=== PATIENT | female | born 1960 | race African-American/Black ===

== ENCOUNTER 2020-11-03 13:55 | Inpatient (IN) ==
--- NOTE | 2020-11-03 14:34 | DR.GENAD ---
HPI Time Seen Time Seen by Provider: 11/03/20 14:18 PCP Primary Care Physician: SHERRI HPI Comment HPI Comment: A 60 y/o presenting with c/o fatigue, dyspnea that worsens with exertion. She denies chest pain. She relates hx. of a.fib, CHF and COPD. She was hospitalized and intubated in April 2020 with pneumonia amd was tested for COVID-19. Her symptoms started about 2 days ago. Here, she was noted with low O2 sats. Complaint/Symptoms Chief Complaint:: PT. C/O FEELING REALLY TIRED, SHORTNESS OF BREATH UPON EXERTION. FAMILY MEMBER CHECKED PT'S HEART RATE @ HOME WAS IN THE 50'S AND O2 SAT WAS 88-92%. COVID-19 Coronavirus risk:travel/contact w/high risk person: No Has patient experienced Coronavirus symptoms: Yes Coronavirus symptoms experienced: Shortness of Breath Nurses notes reviewed Nurses Notes Review: Yes Source History Provided: Patient Mode of Arrival Mode of Arrival: Wheelchair Timing Onset of Chief Complaint: 10/31/20 PMH PMH Past Medical History: Yes Past Medical History: CHF, COPD and Hypertension Past Medical History Comment: A-FIB Past Surgical History: Yes Surgical History: Family History History of Family Medical Conditions: Yes Family Medical History: Hypertension Social History Does patient currently use any type of tobacco product: No Have you used tobacco products in the last 12 months: No Type of Tobacco Use: None Does any household member use tobacco: No Alcohol Use: Occasionally Do you use any recreational Drugs:: Yes (MARIJUANA) Lives With: Family Lives Where: Home Travel Risk Coronavirus risk:travel/contact w/high risk person: No Has patient experienced Coronavirus symptoms: Yes Coronavirus symptoms experienced: Shortness of Breath Infectious screening In the last 2 months have you had wt loss of >10#?: NO Have you had fever, night sweats or hemotysis?: No Have you traveled outside the country in the last 6 months?: No Isolation: Standard ROS Review of Systems Constitutional: Weakness and Fatigue Eyes: No Symptoms Reported ENTM: No Symptoms Reported Respiratoy: Short of Breath Cardiovascular: No Symptoms Reported Gastrointestinal/Abdominal: No Symptoms Reported Genitourinary: No Symptoms Reported Neurological: No Symptoms Reported Musculoskeletal: No Symptoms Reported Integumentary: No Symptoms Reported Hematologic/Lymphatic: No Symptoms Reported Endocrine: No Symptoms Reported Psychiatric: No Symptoms Reported PE Vital Signs Vitals: Temperature 98.8 F Pulse Rate 82 Respiratory Rate 35 Blood Pressure 141/76 O2 Sat by Pulse Oximetry 89 General Limitations: No Limitations General Appearance: Alert and In No Apparent Distress Head Head Exam: Normal Inspection, Atraumatic and Normocephalic Eyes Eye exam: Normal Appearance and EOMI ENT ENT Exam: Normal Exam, Normal Oropharynx, Normal External Ear Exam and Mucous Membranes Moist Neck Neck Exam: Normal Inspection, Full ROM and Trachea Midline Chest Chest Inspection: Normal Inspection and Symmetric Chest Wall Rise Respiratory Respiratory Exam: Normal Lung Sounds Bilat Cardiovascular Cardiovascular Exam: Regular Rate, Normal Rhythm, Normal Heart Sounds, +S1 and +S2 Abdominal Exam Abdominal Exam: Normal Inspection, Normal Bowel Sounds and Soft Extremities Extremities Exam: Normal Inspection and Full ROM Back Back Exam: Normal Inspection and Full ROM Neurologic Neurological Exam: Alert and Oriented X3 Psychiatric Psychiatric Exam: Normal Affect and Normal Mood Skin Skin Exam: Dry and Intact COURSE Reevaluation 1st: Improved Education/Counseling Education/Counseling: Patient, Family, Education and Counseling Educated On: Treatment, Diagnosis, Prognosis and Needs for Follow Up ROR Labs Reviewed Result Diagrams: 11/03/20 15:29 11/03/20 15: Laboratory: WBC 4.0 X10^3/uL (3.6-10.0) 11/03/20 15: RBC 6.57 X10^6/uL (3.5-5.4) H 11/03/20 15:29 Hgb 16.1 g/dL (12.0-16.0) H 11/03/20 15: Hct 53.7 % (36.0-47.0) H 11/03/20 15: MCV 81.8 fL (80.0-100.0) 11/03/20 15:29 MCH 24.5 pg (27.0-34.0) L 11/03/20 15: MCHC 29.9 g/dL (33.0-35.0) L 11/03/20 15: RDW 21.9 % (11.6-16.5) H 11/03/20 15:29 Plt Count 133 X10^3/uL (150.0-450.0) L 11/03/20 15: Plt Count Comment Decreased (ADEQUATE) A 11/03/20 15: MPV 8.7 fL (7.4-11.0) 11/03/20 15: Neut % (Auto) 55.3 % (42.0-75.0) 11/03/20 15:29 Lymph % (Auto) 32.3 % (21.0-51.0) 11/03/20 15:29 [place] % (Auto) 10.1 % (0.0-13.0) 11/03/20 15:29 Eos % (Auto) 1.2 % (0.9-2.9) 11/03/20 15:29 Baso % (Auto) 1.1 % (0.2-1.0) H 11/03/20 15: Neut # (Auto) 2.2 x10^3/uL (2.2-4.8) 11/03/20 15: Lymph # (Auto) 1.3 X10^3/uL (1.3-2.9) 11/03/20 15:29 [place] # (Auto) 0.4 x10^3/uL (0.3-0.8) 11/03/20 15:29 Eos # (Auto) 0.0 x10^3/uL (0.0-0.2) 11/03/20 15:29 Baso # (Auto) 0.0 X10^3/uL (0.0-0.1) 11/03/20 15:29 Absolute Nucleated RBC 1.7 /100WBC 11/03/20 15:29 Plt Morphology Comment Normal (NORMAL) 11/03/20 15:29 RBC Morphology Abnormal (NORMAL) A 11/03/20 15:29 Anisocytosis 1+ A 11/03/20 15:29 PT 13.4 SECONDS (11.8-14.3) 11/03/20 15:29 INR Target Range - 11/03/20 15: INR 1.07 (0.8-1.3) 11/03/20 15:29 APTT 25.0 SECONDS (22.9-36.5) 11/03/20 15:29 PTT Comment - 11/03/20 15:29 D-Dimer 0.38 ug/ml (0.0-0.57) 11/03/20 15:29 Sample Site [facility] 11/03/20 14:25 ABG pH 7.300 (7.35-7.45) L 11/03/20 14:25 ABG pCO2 85.0 mmHg (35.0-45.0) H* 11/03/20 14:25 ABG pO2 26.0 mmHg (80.0-100.0) L* 11/03/20 14:25 ABG HCO3 41.8 mmol/L (22-26) H* 11/03/20 14:25 ABG O2 Saturation 40.0 % (90-100) L* 11/03/20 14:25 ABG Base Excess 11.9 mmol/L (-2.0-2.0) H 11/03/20 14:25 Hamlet Test N/a 11/03/20 14:25 A-a Gradient 17.0 mmHg 11/03/20 14:25 FiO2 21.0 11/03/20 14:25 Blood Gas Comments Pt jes well eb 11/03/20 14:25 Sodium 142 mmol/L (136-145) 11/03/20 15:29 Corrected Sodium TNP 11/03/20 15:29 Potassium 5.6 mmol/L (3.5-5.1) H 11/03/20 15:29 Chloride 105 mmol/L (98-107) 11/03/20 15:29 Carbon Dioxide 38.5 mmol/L (21-32) H 11/03/20 15:29 BUN 8 mg/dL (7-18) 11/03/20 15:29 Creatinine 0.57 mg/dL (0.55-1.02) 11/03/20 15:29 Est GFR (MDRD) Af Amer > 60 (>60) 11/03/20 15:29 Est GFR (MDRD) Non-Af > 60 (>60) 11/03/20 15:29 Glucose 105 mg/dL (65-99) H 11/03/20 15:29 Calcium 8.5 mg/dL (8.5-10.1) 11/03/20 15:29 Corrected Calcium 9.2 mg/dL (8.5-10.1) 11/03/20 15:29 Total Bilirubin 0.40 mg/dL (0.2-1.0) 11/03/20 15:29 AST 38 Units/L (15-37) H 11/03/20 15:29 ALT 33 Units/L (12-78) 11/03/20 15:29 Alkaline Phosphatase 75 Units/L (46-116) 11/03/20 15:29 Creatine Kinase 79 Units/L (26-192) 11/03/20 15:29 CK-MB (CK-2) 1.0 ng/mL (0-4.0) 11/03/20 15:29 CK/CKMB % Calc 1.3 % (<4) 11/03/20 15:29 Troponin I < 0.02 ng/mL (0-1.5) 11/03/20 15:29 Total Protein 7.3 g/dL (6.4-8.2) 11/03/20 15:29 Albumin 3.1 g/dL (3.4-5.0) L 11/03/20 15:29 Globulin 4.2 g/dL (2.5-4.5) 11/03/20 15:29 Albumin/Globulin Ratio 0.7 Ratio (1.1-2.1) L 11/03/20 15:29 TSH 3rd Generation 2.723 uIU/mL (0.358-3.74) 11/03/20 15:29 Specimen Type Catherized urine 11/03/20 15:08 Urine Color Yellow (YELLOW) 11/03/20 15:08 Urine Appearance Clear (CLEAR) 11/03/20 15:08 Urine pH 6.0 (5.0 - 8.0) 11/03/20 15:08 Ur Specific [place] 1.015 (1.000-1.030) 11/03/20 15:08 Urine Protein 2+ (NEGATIVE) 11/03/20 15:08 Urine Glucose (UA) Negative (NEGATIVE) 11/03/20 15:08 Urine Ketones Negative (NEGATIVE) 11/03/20 15:08 Urine Occult Blood Negative (NEGATIVE) 11/03/20 15:08 Urine Nitrite Negative (NEGATIVE) 11/03/20 15:08 Urine Bilirubin Negative (NEGATIVE) 11/03/20 15:08 Urine Urobilinogen Normal (NORMAL) 11/03/20 15:08 Ur Leukocyte Esterase Negative (NEGATIVE) 11/03/20 15:08 Urine RBC 0-2 /HPF (0-3) 11/03/20 15:08 Urine WBC 0-2 /HPF (0-5) 11/03/20 15:08 Ur Squamous Epith Cells Few /HPF (NEGATIVE) 11/03/20 15:08 Ur Transition Epith Cell Rare /HPF (NEGATIVE) 11/03/20 15:08 Amorphous Sediment Trace /HPF (NEGATIVE) 11/03/20 15:08 Urine Bacteria Trace /HPF (NEGATIVE) 11/03/20 15:08 Urine Mucus Few /HPF (NEGATIVE) 11/03/20 15:08 Ur Culture Indicated? No/not indicated 11/03/20 15:08 SARS CoV-2 RNA Rapid FINESSE Negative (NEGATIVE) 11/03/20 14:39 XRAY XRAY Interpreted by: Self X-ray Results: CXR: borderline cardiomegaly, pulmonary infiltrates. Radiologist report is pending. EKG Rate: 94 [place]: Normal Rhythm: NSR Block: None Hypertrophy: LVH ST: Old and Infarct Opioid Opioid Risk Tool Age (Dario box if 16-45): No History of Preadolescent Sexual Abuse: No Total: 0 Total Score Risk Category: Low Risk Copyright: Ramos LR predicting aberrant behaviors Diagnosis Discharge Problem: COPD exacerbation Respiratory failure Qualifiers: Chronicity: acute on chronic Respiratory failure complication: hypoxia and hypercapnia Qualified Code(s): J96.21 - Acute and chronic respiratory failure with hypoxia Pneumonia Qualifiers: Pneumonia type: due to unspecified organism Laterality: bilateral Lung location: unspecified part of lung Qualified Code(s): J18.9 - Pneumonia, unspecified organism CHF (congestive heart failure), NYHA class III Qualifiers: Congestive heart failure type: unspecified Qualified Code(s): I50.9 - Heart failure, unspecified A-fib Qualifiers: Atrial fibrillation type: paroxysmal Qualified Code(s): I48.0 - Paroxysmal a trial fibrillation HTN (hypertension) Qualifiers: Hypertension type: primary hypertension Qualified Code(s): I10 - Essential (primary) hypertension ADDITIONAL NOTES Additional Notes Additional Notes: HISTORY PT. C/O FEELING REALLY TIRED, SHORTNESS OF BREATH UPON EXERTION. FAMILY MEMBER CHECKED PT'S HEART RATE @ HOME WAS IN THE 50'S AND O2 SAT WAS 88-9 STUDY CHEST, 1 VIEW COMPARISON None TECHNIQUE AP view of the chest FINDINGS Cardiac silhouette is enlarged. There is prominence of the pulmonary arteries. Patient is rotated. Diffuse airspace disease worse on the left. Blunted left costophrenic sulcus. No discernible pneumothorax. Soft tissue attenuation limits evaluation. IMPRESSION Cardiomegaly with airspace disease likely pulmonary edema. Pneumonia is not excluded. Suspect a small left pleural effusion. Prominent pulmonary arteries can be seen with pulmonary artery hypertension. Electronically signed by: Farhan Nunez (Nov 03, 2020 14:56:37)
[2020-11-03 14:54] LABS: ABG BASE EXCESS 11.9 mmol/L (-2.0-2.0)
[2020-11-03 14:56] LABS: ABG HCO3 41.8 mmol/L (22-26)
--- NOTE | 2020-11-03 14:58 | RAD ---
HISTORYPT. C/O FEELING REALLY TIRED, SHORTNESS OF BREATH UPON EXERTION. FAMILY MEMBER CHECKED PT'S HEART RATE @ HOME WAS IN THE 50'S AND O2 SAT WAS 88-9STUDYCHEST, 1 VIEWCOMPARISONNoneTECHNIQUEAP view of the chestFINDINGSCardiac silhouette is enlarged. There is prominence of the pulmonary arteries. Patient is rotated. Diffuse airspace disease worse on the left. Blunted left costophrenic sulcus. No discernible pneumothorax. Soft tissue attenuation limits evaluation.IMPRESSIONCardiomegaly with airspace disease likely pulmonary edema. Pneumonia is not excluded. Suspect a small left pleural effusion. Prominent pulmonary arteries can be seen with pulmonary artery hypertension.Electronically signed by: Farhan Nunez (Nov 03, 2020 14:56:37)
[2020-11-03 15:36] LABS: BILIRUBIN,URINE NEGATIVE (NEGATIVE); BLOOD/HEMOGLOBIN,URINE NEGATIVE (NEGATIVE); GLUCOSE, URINE NEGATIVE (NEGATIVE); KETONES,URINE NEGATIVE (NEGATIVE); LEUKOCYTE ESTERASE ,URINE NEGATIVE (NEGATIVE); NITRITES,URINE NEGATIVE (NEGATIVE); PROTEIN,URINE 2+ (NEGATIVE); UROBILINOGEN,URINE NORMAL (NORMAL)
[2020-11-03 15:38] LABS: APPEARANCE,URINE CLEAR (CLEAR); COLOR,URINE YELLOW (YELLOW)
[2020-11-03 15:46] LABS: AMORPHOUS SEDIMENT,UR TRACE /HPF (NEGATIVE); BACTERIA,URINE TRACE /HPF (NEGATIVE); MUCUS,URINE FEW /HPF (NEGATIVE); RBC,URINE 0-2 /HPF (0-3); SQUAMOUS EPITHELIAL CELL,UR FEW /HPF (NEGATIVE); TRANSITIONAL EPI CELLS,URINE RARE /HPF (NEGATIVE)
[2020-11-03 16:12] LABS: BASOPHILS % (AUTO) 1.1 % (0.2-1.0); EOSINOPHILS % (AUTO) 1.2 % (0.9-2.9); HEMATOCRIT 53.7 % (36.0-47.0); HEMOGLOBIN 16.1 g/dL (12.0-16.0); LYMPHOCYTES # (AUTO) 1.3 X10^3/uL (1.3-2.9); LYMPHOCYTES % (AUTO) 32.3 % (21.0-51.0); MEAN CORPUSCULAR HEMOGLOBIN 24.5 pg (27.0-34.0); MEAN CORPUSCULAR HGB CONC 29.9 g/dL (33.0-35.0); MEAN CORPUSCULAR VOLUME 81.8 fL (80.0-100.0); MEAN PLATELET VOLUME 8.7 fL (7.4-11.0); MONOCYTES # (AUTO) 0.4 x10^3/uL (0.3-0.8); MONOCYTES % (AUTO) 10.1 % (0.0-13.0); NEUTROPHILS # (AUTO) 2.2 x10^3/uL (2.2-4.8); NEUTROPHILS % (AUTO) 55.3 % (42.0-75.0); PLATELET COUNT 133 X10^3/uL (150.0-450.0); RED BLOOD COUNT 6.57 X10^6/uL (3.5-5.4); RED CELL DISTRIBUTION WIDTH 21.9 % (11.6-16.5)
[2020-11-03 16:21] LABS: ALANINE AMINOTRANSFERASE 33 Units/L (12-78); ALBUMIN 3.1 g/dL (3.4-5.0); ALKALINE PHOSPHATASE 75 Units/L (46-116); ASPARTATE AMINO TRANSFERASE 38 Units/L (15-37); BLOOD UREA NITROGEN 8 mg/dL (7-18); CALCIUM 8.5 mg/dL (8.5-10.1); CARBON DIOXIDE 38.5 mmol/L (21-32); CHLORIDE 105 mmol/L (98-107); COR CA(FOR HYPOALB) 9.2 mg/dL (8.5-10.1); CREATININE 0.57 mg/dL (0.55-1.02); TOTAL PROTEIN 7.3 g/dL (6.4-8.2); TSH (3RD GENERATION) 2.723 uIU/mL (0.358-3.74); eGFR NON BLACK RACES > 60 (>60)
[2020-11-03 16:22] LABS: ANISOCYTOSIS 1+; PLATELET MORPHOLOGY COMMENT NORMAL (NORMAL); SODIUM 142 mmol/L (136-145)
[2020-11-03 16:35] LABS: CKMB % 1.3 % (<4); CREATINE KINASE 79 Units/L (26-192); TROPONIN I < 0.02 ng/mL (0-1.5)
[2020-11-03] MEDS ORDERED: LASIX IVP ONE ×2 (16:58→17:22)
[2020-11-03] MEDS ORDERED: KAYEXALATE SUSP PO NR (17:00)
[2020-11-03] MEDS ORDERED: ROCEPHIN VIAL 1 GRAM 1 G in NS 100 ML IV + SPIKE MINIBAG* 100 ML IV ONE (17:04)
[2020-11-03] MEDS ORDERED: VIBRAMYCIN 100 MG in D5W 250 ML IV 250 ML IV ONE (17:04)
[2020-11-03] MEDS ORDERED: ROCEPHIN 1 GRAM IV PREMIX 1 G/50 ML IV.SOLN. IV ONE (17:22)
[2020-11-03 17:47] LABS: ABG BASE EXCESS 13.6 mmol/L (-2.0-2.0)
[2020-11-03 17:48] LABS: ABG HCO3 45.8 mmol/L (22-26)
[2020-11-03] MEDS ORDERED: KAYEXALATE SUSP PO ONE (18:00)
[2020-11-03] MEDS ORDERED: NS 1000 ML 1,000 ML IV SCH (18:00)
[2020-11-03] MEDS ORDERED: ATIVAN INJ 2 MG VIAL IVP PRN (18:03)
[2020-11-03] MEDS: NS 1000 ML 1,000 ML IV SCH (18:13)
[2020-11-03 19:58] LABS: ABG BASE EXCESS 14.2 mmol/L (-2.0-2.0)
[2020-11-03 19:59] LABS: ABG ALLEN TEST POS; ABG HCO3 43.8 mmol/L (22-26)
[2020-11-03] MEDS: DUONEB 0.5 MG/3 MG (3 mL) NEB SCH (20:20)
[2020-11-03] MEDS: PULMICORT NEB TX 0.5 MG NEB SCH (20:20)
[2020-11-03] MEDS ORDERED: SOLU-Medrol 40 MG VIAL IVP SCH (22:00)
[2020-11-04 05:26] LABS: ASPARTATE AMINO TRANSFERASE 24 Units/L (15-37); BLOOD UREA NITROGEN 9 mg/dL (7-18); COR NA(FOR HYPERGLY) 143 mmol/L (136-145); SODIUM 142 mmol/L (136-145)
[2020-11-04 05:43] LABS: ALANINE AMINOTRANSFERASE 33 Units/L (12-78); ALKALINE PHOSPHATASE 79 Units/L (46-116); CALCIUM 8.6 mg/dL (8.5-10.1); CHLORIDE 103 mmol/L (98-107); COR CA(FOR HYPOALB) 9.4 mg/dL (8.5-10.1); CREATININE 1.01 mg/dL (0.55-1.02); eGFR NON BLACK RACES 59 (>60)
[2020-11-04 06:13] LABS: BASOPHILS # (AUTO) 0.1 X10^3/uL (0.0-0.1); BASOPHILS % (AUTO) 1.1 % (0.2-1.0); EOSINOPHILS % (AUTO) 0.7 % (0.9-2.9); HEMATOCRIT 54.1 % (36.0-47.0); HEMOGLOBIN 16.3 g/dL (12.0-16.0); MEAN CORPUSCULAR HEMOGLOBIN 24.8 pg (27.0-34.0); MEAN CORPUSCULAR HGB CONC 30.1 g/dL (33.0-35.0); MEAN CORPUSCULAR VOLUME 82.4 fL (80.0-100.0); MEAN PLATELET VOLUME 8.6 fL (7.4-11.0); MONOCYTES # (AUTO) 0.4 x10^3/uL (0.3-0.8); MONOCYTES % (AUTO) 8.6 % (0.0-13.0); NEUTROPHILS # (AUTO) 3.2 x10^3/uL (2.2-4.8); NEUTROPHILS % (AUTO) 67.6 % (42.0-75.0); PLATELET COUNT 134 X10^3/uL (150.0-450.0); RED BLOOD COUNT 6.57 X10^6/uL (3.5-5.4); RED CELL DISTRIBUTION WIDTH 21.8 % (11.6-16.5); WHITE BLOOD COUNT 4.8 X10^3/uL (3.6-10.0)
[2020-11-04 06:31] LABS: GIANT PLATELET FEW; PLATELET MORPHOLOGY COMMENT ABNORMAL (NORMAL)
[2020-11-04 06:32] LABS: ANISOCYTOSIS 1+
[2020-11-04 08:15] LABS: ABG ALLEN TEST POS; ABG PCO2 > 115.0 mmHg (35.0-45.0)
[2020-11-04] MEDS: DUONEB 0.5 MG/3 MG (3 mL) NEB SCH ×4 (08:29→21:00)
[2020-11-04] MEDS: PULMICORT NEB TX 0.5 MG NEB SCH ×2 (08:29→21:00)
--- NOTE | 2020-11-04 08:45 | RAD ---
HISTORYHYPOXIASTUDYCHEST x-ray, 1 VIEWCOMPARISONX-ray 11/03/2020FINDINGSBilateral lung opacities are similar to prior study. This could be pulmonary edema and/or pneumonia. There is cardiomegaly and pulmonary venous congestion consistent with CHF. Probable moderate left pleural effusion persists. No pneumothorax is seen.IMPRESSIONAppearance of the chest is similar to prior study.Electronically signed by: Jean-Pierre Butts (Nov 04, 2020 08:43:58)
[2020-11-04] MEDS: ROCEPHIN 1 GRAM IV PREMIX 1 G/50 ML IV.SOLN. IV SCH (09:35)
[2020-11-04] MEDS ORDERED: ZITHROMAX INJ 500 MG VIAL 500 MG in NS 250 ML IV 250 ML IV SCH (09:43)
[2020-11-04] MEDS ORDERED: LASIX IVP SCH (10:00)
[2020-11-04 10:49] LABS: ABG ALLEN TEST P; ABG PCO2 > 115.0 mmHg (35.0-45.0)
[2020-11-04] MEDS: VSL#3 PO SCH (11:16)
[2020-11-04] MEDS: LOVENOX INJ 40 MG SYR SC SCH (11:16)
--- NOTE | 2020-11-04 12:15 | DR.H&P ---
H&P History & Physical for Day of: H&P Date: 11/04/20 Chief Complaint Chief Complaint: Shortness of breath Confusion, Weakness Allergies Allergies Allergy/AdvReac Type Severity Reaction Status Date / Time shellfish derived Allergy Verified 11/03/20 19:52 STEROIDS Allergy Uncoded 11/03/20 17:19 History of Present Illness History of Present Illness: Pt is a 60 year old female past medical history of CHF, COPD, HTN, presenting with dyspnea, fatigue, weakness, and confusion after noticing her pulse ox was low in the 80s. Pt is a poor historian of her medicat ions and exact medical history. She is from [facility] and is visiting, and noted in chart she had COVID-19 in April that required intubation. Labs/imaging: WBC 4.8, Hgb 16.3, Plt 134, Na 142, K 4.8, Creatinine 1.01, Glucose 138, Troponin negative, D-dimer 0.38, TSH 2.72, COVID-19 negative, UA negative, Blood/Sputum Cx pending. CXR: Bilateral lung opacities are similar to prior study. This could be pulmonary edema and/or pneumonia. There is cardiomegaly and pulmonary venous congestion consistent with CHF. Probable moderate left pleural effusion persists. No pneumothorax is seen. Initial ABG: pH 7.30, pCO2 85, pO2 26, HCO3 41, O2sat 40% on FiO2 21%. Pt was started on BiPAP with repeat ABG and setting adjustments. Pt was given IV Lasix 40mg x 1 dose. Started on antibiotics Rocephin and Azithromycin. Admitted to ICU/telemetry. RT support with bronchodilators. Overnight patient was able to be weaned off BiPAP briefly however had to be placed this morning back on BiPAP after noted confusion by nurse, ABG before BiPAP was placed: pH 7.14, pCO2 >115, pO2 63, HCO3 Not reportable, O2sat NR on FiO2 32%. Will repeat ABG in 2 hours. Order IV Lasix 40mg BID, patient has steroids listed as an allergy, unclear due to mental status if true allergy, will try to determine. Order Echo for cardiac evaluation. Will closely monitor and follow up labs/imaging. Critical care time spent on clinical assessment, reviewing labs and imaging, decision making, and documentation greater than 75 minutes. Past Medical History Past Medical History: CHF, COPD and Hypertension Past Surgical History Surgical History: Family History Family Medical History: Diabetes Mellitus, Cancer and Hypertension Social History Does patient currently use any type of tobacco product: Yes Have you used tobacco products in the last 12 months: Yes Type of Tobacco Use: Cigarettes Does any household member use tobacco: Yes Alcohol Use: Heavy and DAILY Drug Use: Marijuana Medications Home Medications: shellfish derived Allergy (Verified 11/03/20 19:52) STEROIDS Allergy (Uncoded 11/03/20 17:19) CONTINUE taking the following medications amlodipine 10 mg PO DAILY 11/03/20 [History] Labs Result Diagrams: 11/04/20 04:46 11/04/20 04:46 Labs: 11/04/20 00:44 Sputum - Expectorated Sputum - Final Laboratory WBC 4.8 X10^3/uL (3.6-10.0) 11/04/20 04:46 RBC 6.57 X10^6/uL (3.5-5.4) H 11/04/20 04:46 Hgb 16.3 g/dL (12.0-16.0) H 11/04/20 04:46 Hct 54.1 % (36.0-47.0) H 11/04/20 04:46 MCV 82.4 fL (80.0-100.0) 11/04/20 04:46 MCH 24.8 pg (27.0-34.0) L 11/04/20 04:46 MCHC 30.1 g/dL (33.0-35.0) L 11/04/20 04:46 RDW 21.8 % (11.6-16.5) H 11/04/20 04:46 Plt Count 134 X10^3/uL (150.0-450.0) L 11/04/20 04:46 Plt Count Comment Decreased (ADEQUATE) A 11/04/20 04:46 MPV 8.6 fL (7.4-11.0) 11/04/20 04:46 Neut % (Auto) 67.6 % (42.0-75.0) 11/04/20 04:46 Lymph % (Auto) 22.0 % (21.0-51.0) 11/04/20 04:46 [place] % (Auto) 8.6 % (0.0-13.0) 11/04/20 04:46 Eos % (Auto) 0.7 % (0.9-2.9) L 11/04/20 04:46 Baso % (Auto) 1.1 % (0.2-1.0) H 11/04/20 04:46 Neut # (Auto) 3.2 x10^3/uL (2.2-4.8) 11/04/20 04:46 Lymph # (Auto) 1.0 X10^3/uL (1.3-2.9) L 11/04/20 04:46 [place] # (Auto) 0.4 x10^3/uL (0.3-0.8) 11/04/20 04:46 Eos # (Auto) 0.0 x10^3/uL (0.0-0.2) 11/04/20 04:46 Baso # (Auto) 0.1 X10^3/uL (0.0-0.1) 11/04/20 04:46 Absolute Nucleated RBC 2.1 /100WBC 11/04/20 04:46 Giant Platelets Few 11/04/20 04:46 Plt Morphology Comment Abnormal (NORMAL) A 11/04/20 04:46 RBC Morphology Abnormal (NORMAL) A 11/04/20 04:46 Anisocytosis 1+ A 11/04/20 04:46 PT 13.4 SECONDS (11.8-14.3) 11/03/20 15:29 INR Target Range - 11/03/20 15:29 INR 1.07 (0.8-1.3) 11/03/20 15:29 APTT 25.0 SECONDS (22.9-36.5) 11/03/20 15:29 PTT Comment - 11/03/20 15:29 D-Dimer 0.38 ug/ml (0.0-0.57) 11/03/20 15:29 Sample Site Lr 11/04/20 10:40 ABG pH 7.210 (7.35-7.45) L 11/04/20 10:40 ABG pCO2 > 115.0 mmHg (35.0-45.0) H* 11/04/20 10:40 ABG pO2 62.0 mmHg (80.0-100.0) L 11/04/20 10:40 ABG HCO3 Not Reportable 11/04/20 10:40 ABG O2 Saturation Not Reportable 11/04/20 10:40 ABG Base Excess Not Reportable 11/04/20 10:40 [place]let Test P 11/04/20 10:40 A-a Gradient Not Reportable 11/04/20 10:40 FiO2 50.0 11/04/20 10:40 Blood Gas Comments 11/04/20 10:40 Sodium 142 mmol/L (136-145) 11/04/20 04:46 Corrected Sodium 143 mmol/L (136-145) 11/04/20 04:46 Potassium 4.8 mmol/L (3.5-5.1) 11/04/20 04:46 Chloride 103 mmol/L (98-107) 11/04/20 04:46 Carbon Dioxide 43.0 mmol/L (21-32) H* 11/04/20 04:46 BUN 9 mg/dL (7-18) 11/04/20 04:46 Creatinine 1.01 mg/dL (0.55-1.02) 11/04/20 04:46 Est GFR (MDRD) Af Amer > 60 (>60) 11/04/20 04:46 Est GFR (MDRD) Non-Af 59 (>60) 11/04/20 04:46 Glucose 138 mg/dL (65-99) H 11/04/20 04:46 Lactic Acid 0.9 mmol/L (0.4-2.0) 11/03/20 17:11 Calcium 8.6 mg/dL (8.5-10.1) 11/04/20 04:46 Corrected Calcium 9.4 mg/dL (8.5-10.1) 11/04/20 04:46 Total Bilirubin 0.30 mg/dL (0.2-1.0) 11/04/20 04:46 AST 24 Units/L (15-37) 11/04/20 04:46 ALT 33 Units/L (12-78) 11/04/20 04:46 Alkaline Phosphatase 79 Units/L (46-116) 11/04/20 04:46 Creatine Kinase 79 Units/L (26-192) 11/03/20 15:29 CK-MB (CK-2) 1.0 ng/mL (0-4.0) 11/03/20 15:29 CK/CKMB % Calc 1.3 % (<4) 11/03/20 15:29 Troponin I < 0.02 ng/mL (0-1.5) 11/03/20 15:29 Total Protein 8.0 g/dL (6.4-8.2) 11/04/20 04:46 Albumin 3.0 g/dL (3.4-5.0) L 11/04/20 04:46 Globulin 5.0 g/dL (2.5-4.5) H 11/04/20 04:46 Albumin/Globulin Ratio 0.6 Ratio (1.1-2.1) L 11/04/20 04:46 TSH 3rd Generation 2.723 uIU/mL (0.358-3.74) 11/03/20 15:29 Specimen Type Catherized urine 11/03/20 15:08 Urine Color Yellow (YELLOW) 11/03/20 15:08 Urine Appearance Clear (CLEAR) 11/03/20 15:08 Urine pH 6.0 (5.0 - 8.0) 11/03/20 15:08 Ur Specific [place] 1.015 (1.000-1.030) 11/03/20 15:08 Urine Protein 2+ (NEGATIVE) 11/03/20 15:08 Urine Glucose (UA) Negative (NEGATIVE) 11/03/20 15:08 Urine Ketones Negative (NEGATIVE) 11/03/20 15:08 Urine Occult Blood Negative (NEGATIVE) 11/03/20 15:08 Urine Nitrite Negative (NEGATIVE) 11/03/20 15:08 Urine Bilirubin Negative (NEGATIVE) 11/03/20 15:08 Urine Urobilinogen Normal (NORMAL) 11/03/20 15:08 Ur Leukocyte Esterase Negative (NEGATIVE) 11/03/20 15:08 Urine RBC 0-2 /HPF (0-3) 11/03/20 15:08 Urine WBC 0-2 /HPF (0-5) 11/03/20 15:08 Ur Squamous Epith Cells Few /HPF (NEGATIVE) 11/03/20 15:08 Ur Transition Epith Cell Rare /HPF (NEGATIVE) 11/03/20 15:08 Amorphous Sediment Trace /HPF (NEGATIVE) 11/03/20 15:08 Urine Bacteria Trace /HPF (NEGATIVE) 11/03/20 15:08 Urine Mucus Few /HPF (NEGATIVE) 11/03/20 15:08 Ur Culture Indicated? No/not indicated 11/03/20 15:08 SARS CoV-2 RNA Rapid FINESSE Negative (NEGATIVE) 11/03/20 14:39 Review of Systems Constitutional: denies Fever and Chills Eyes: No Symptoms Reported ENT: No Symptoms Reported Respiratory: Shortness of Breath and Wheezing Cardiovascular: No Symptoms Reported Gastrointestinal: No Symptoms Reported Genitourinary: No Symptoms Reported Musculoskeletal: No Symptoms Reported Skin: No Symptoms Reported Neurological: Confusion Physical Exam Vital Signs: Temperature 99.0 F Pulse Rate 78 Respiratory Rate 39 Blood Pressure 125/66 O2 Sat by Pulse Oximetry 99 Oriented: Normal Eyes: Normal Ear: Normal Nose: Normal Throat: Normal Respiratory: Diminished Throughout, Rales Throughout and Wheezes Throughout Cardiovascular: Normal : Normal Auscultation: Bowel Sounds: Normal Palpation: Normal Tenderness: Normal Skin: Normal Musculoskeletal: Normal Psychiatric: Normal Mood Description: Calm and Appropriate Affect: Normal Speech Pattern: Clear and Appropriate Assessment/Plan (1) Acute respiratory failure: Status: Acute (2) CHF (congestive heart failure), NYHA class III: Qualifiers: Congestive heart failure type: unspecified Qualified Code(s): I50.9 - Heart failure, unspecified Status: Acute (3) COPD exacerbation: Status: Acute Review H&P Reviewed: Yes Patient was examined?: Yes
[2020-11-04] MEDS ORDERED: SOLU MEDROL IV ONE ×2 (15:00)
[2020-11-04] MEDS ORDERED: NS IV ONE ×2 (15:00)
[2020-11-04 15:04] LABS: ABG PCO2 > 115.0 mmHg (35.0-45.0)
[2020-11-04 15:05] LABS: ABG ALLEN TEST P
[2020-11-04] MEDS ORDERED: LASIX IVP ONE ×3 (16:13→20:00)
[2020-11-04] MEDS: SOLU-Medrol 125 MG VIAL IVP SCH (17:25)
[2020-11-04 17:39] LABS: ABG ALLEN TEST POSITIVE; ABG PCO2 > 115.0 mmHg (35.0-45.0)
[2020-11-04] MEDS: NS 1000 ML 1,000 ML IV SCH (18:09)
[2020-11-04 18:22] VITALS: BMI 42.7
[2020-11-05 05:20] LABS: ABG BASE EXCESS 19.7 mmol/L (-2.0-2.0)
[2020-11-05 05:21] LABS: ABG ALLEN TEST POS; ABG HCO3 51.4 mmol/L (22-26)
--- NOTE | 2020-11-05 05:32 | RAD ---
HISTORYHYPOXIASTUDYCHEST, 1 [id number]/2021FINDINGSThe trachea is midline. The cardiac silhouette is none mildly enlarged.. Bilateral airspace opacities, unchanged. No pneumothorax.. The bony thorax is unremarkable.IMPRESSIONStable portable chestElectronically signed by: Robi Strickland (Nov 05, 2020 05:30:39)
[2020-11-05 05:39] LABS: BASOPHILS % (AUTO) 0.3 % (0.2-1.0); HEMATOCRIT 53.2 % (36.0-47.0); LYMPHOCYTES # (AUTO) 0.5 X10^3/uL (1.3-2.9); LYMPHOCYTES % (AUTO) 12.8 % (21.0-51.0); MEAN CORPUSCULAR HEMOGLOBIN 24.5 pg (27.0-34.0); MEAN CORPUSCULAR HGB CONC 29.8 g/dL (33.0-35.0); MEAN CORPUSCULAR VOLUME 82.1 fL (80.0-100.0); MEAN PLATELET VOLUME 8.8 fL (7.4-11.0); MONOCYTES # (AUTO) 0.1 x10^3/uL (0.3-0.8); MONOCYTES % (AUTO) 2.2 % (0.0-13.0); NEUTROPHILS # (AUTO) 3.1 x10^3/uL (2.2-4.8); NEUTROPHILS % (AUTO) 84.7 % (42.0-75.0); PLATELET COUNT 124 X10^3/uL (150.0-450.0); RED BLOOD COUNT 6.48 X10^6/uL (3.5-5.4); RED CELL DISTRIBUTION WIDTH 21.9 % (11.6-16.5); WHITE BLOOD COUNT 3.7 X10^3/uL (3.6-10.0)
[2020-11-05 05:57] LABS: ALANINE AMINOTRANSFERASE 30 Units/L (12-78); ALBUMIN 2.8 g/dL (3.4-5.0); ALKALINE PHOSPHATASE 73 Units/L (46-116); ASPARTATE AMINO TRANSFERASE 19 Units/L (15-37); BLOOD UREA NITROGEN 17 mg/dL (7-18); CALCIUM 9.2 mg/dL (8.5-10.1); CHLORIDE 102 mmol/L (98-107); COR CA(FOR HYPOALB) 10.2 mg/dL (8.5-10.1); COR NA(FOR HYPERGLY) 146 mmol/L (136-145); CREATININE 0.94 mg/dL (0.55-1.02); SODIUM 146 mmol/L (136-145); TOTAL PROTEIN 7.9 g/dL (6.4-8.2); eGFR NON BLACK RACES > 60 (>60)
[2020-11-05] MEDS: SOLU-Medrol 125 MG VIAL IVP SCH ×3 (06:00→21:17)
[2020-11-05 06:06] LABS: CARBON DIOXIDE 44.6 mmol/L (21-32)
[2020-11-05 06:22] LABS: HEMOGLOBIN 15.9 g/dL (12.0-16.0)
[2020-11-05 06:23] LABS: ANISOCYTOSIS 1+; PLATELET MORPHOLOGY COMMENT NORMAL (NORMAL)
[2020-11-05] MEDS: PULMICORT NEB TX 0.5 MG NEB SCH ×2 (08:06→20:30)
[2020-11-05] MEDS: DUONEB 0.5 MG/3 MG (3 mL) NEB SCH ×4 (08:07→20:30)
[2020-11-05] MEDS ORDERED: LASIX IVP SCH (09:00)
[2020-11-05] MEDS: LOVENOX INJ 40 MG SYR SC SCH (09:42)
[2020-11-05] MEDS: ROCEPHIN 1 GRAM IV PREMIX 1 G/50 ML IV.SOLN. IV SCH (09:43)
[2020-11-05] MEDS: VSL#3 PO SCH (09:54)
[2020-11-05] MEDS ORDERED: ZITHROMAX INJ 500 MG VIAL 500 MG in NS 250 ML IV 250 ML IV SCH (11:00)
[2020-11-05 16:09] LABS: ABG BASE EXCESS 20.1 mmol/L (-2.0-2.0)
[2020-11-05 16:11] LABS: ABG ALLEN TEST POSTIVE; ABG HCO3 50.7 mmol/L (22-26)
--- NOTE | 2020-11-05 17:36 | PCM.PROG ---
Progress Note Progress Note for Day of Date of Exam: 11/05/20 Subjective Subjective: Pt is a 60 year old female past medical history of CHF, COPD, HTN, admitted for Acute Respiratory Failure, COPD exacerbation, CHF exacerbation, Obesity Hypoventilation Syndrome. This morning patient remains on BiPAP. Yesterday, critical care was consulted via telemed for evaluation and manag ement. Pt's IV Lasix was increased and BiPAP setting adjusted. Pt is alert and oriented on examination. She reports feeling better however has confusion when BiPAP is removed. Labs/imaging: WBC 3.7, Hgb 15.9, Plt 124, Na 146, K 4.6, Creatinine 0.94, Glucose 120, Blood/Sputum Cx pending. CXR was obtained this morning and revealed: Bilateral airspace opacities, unchanged. ABG: pH 7.29, pCO2 107, pO2 76, HCO3 51, O2sat 93% on FiO2 60%. Echo: EF 66%. Continue antibiotics: Rocephin and Azithromycin. IV Solumedrol 80mg Q8H, RT support with bronchodilators. Critical care/pulmonary following, appreciate the recommendations and management. Will closely monitor and follow up labs/imaging. Time spent on clinical assessment, reviewing labs and imaging, decision making, and documentation greater than 45 minutes. Past Medical Family Social History Past Med/Fam/Surg Hx: No changes since H&P Allergies: Allergies shellfish derived Allergy (Verified 11/03/20 19:52) STEROIDS Allergy (Uncoded 11/03/20 17:19) Review of Systems ROS: No change since H&P Vital Signs and I&O's Vital Signs: Temperature 98.5 F Pulse Rate 81 Respiratory Rate 21 Blood Pressure 153/72 O2 Sat by Pulse Oximetry 100 Intake and Output: Intake & Output 11/02/20 11/03/20 11/04/20 11/05/20 23:59 23:59 23:59 23:59 Intake Total 360 / 360 460 / 460 177 / 177 Output Total 2800 / 2800 2525 / 2525 1250 / 1250 Balance -2440 / -2440 -2065 / -2065 -1073 / -1073 Physical Exam Oriented: Normal Eyes: Normal Ear: Normal Nose: Normal Throat: Normal Respiratory: Diminished and Wheezes Cardiovascular: Normal : Normal Auscultation: Bowel Sounds: Normal Tenderness: Normal Skin: Normal Musculoskeletal: Normal Psychiatric: Normal Mood Description: Calm and Appropriate Affect: Normal Speech Pattern: Clear Laboratory and Diagnostics Result Diagrams: 11/05/20 05:13 11/05/20 05:23 Labs: 11/03/20 17:18 Blood Blood Culture - Preliminary 11/03/20 17:11 Blood Blood Culture - Preliminary 11/04/20 00:44 Sputum - Expectorated Sputum Sputum Culture - Preliminary 11/04/20 00:44 Sputum - Expectorated Sputum - Final Laboratory WBC 3.7 X10^3/uL (3.6-10.0) 11/05/20 05:13 RBC 6.48 X10^6/uL (3.5-5.4) H 11/05/20 05:13 Hgb 15.9 g/dL (12.0-16.0) 11/05/20 05:13 Hct 53.2 % (36.0-47.0) H 11/05/20 05:13 MCV 82.1 fL (80.0-100.0) 11/05/20 05:13 MCH 24.5 pg (27.0-34.0) L 11/05/20 05:13 MCHC 29.8 g/dL (33.0-35.0) L 11/05/20 05:13 RDW 21.9 % (11.6-16.5) H 11/05/20 05:13 Plt Count 124 X10^3/uL (150.0-450.0) L 11/05/20 05:13 Plt Count Comment Decreased (ADEQUATE) A 11/05/20 05:13 MPV 8.8 fL (7.4-11.0) 11/05/20 05:13 Neut % (Auto) 84.7 % (42.0-75.0) H 11/05/20 05:13 Lymph % (Auto) 12.8 % (21.0-51.0) L 11/05/20 05:13 [place] % (Auto) 2.2 % (0.0-13.0) 11/05/20 05:13 Eos % (Auto) 0.0 % (0.9-2.9) L 11/05/20 05:13 Baso % (Auto) 0.3 % (0.2-1.0) 11/05/20 05:13 Neut # (Auto) 3.1 x10^3/uL (2.2-4.8) 11/05/20 05:13 Lymph # (Auto) 0.5 X10^3/uL (1.3-2.9) L 11/05/20 05:13 [place] # (Auto) 0.1 x10^3/uL (0.3-0.8) L 11/05/20 05:13 Eos # (Auto) 0.0 x10^3/uL (0.0-0.2) 11/05/20 05:13 Baso # (Auto) 0.0 X10^3/uL (0.0-0.1) 11/05/20 05:13 Absolute Nucleated RBC 1.4 /100WBC 11/05/20 05:13 Giant Platelets Few 11/04/20 04:46 Plt Morphology Comment Normal (NORMAL) 11/05/20 05:13 RBC Morphology Abnormal (NORMAL) A 11/05/20 05:13 Anisocytosis 1+ A 11/05/20 05:13 PT 13.4 SECONDS (11.8-14.3) 11/03/20 15:29 INR Target Range - 11/03/20 15:29 INR 1.07 (0.8-1.3) 11/03/20 15:29 APTT 25.0 SECONDS (22.9-36.5) 11/03/20 15:29 PTT Comment - 11/03/20 15:29 D-Dimer 0.38 ug/ml (0.0-0.57) 11/03/20 15:29 Sample Site Rrad 11/05/20 16:00 ABG pH 7.340 (7.35-7.45) L 11/05/20 16:00 ABG pCO2 94.0 mmHg (35.0-45.0) H* 11/05/20 16:00 ABG pO2 74.0 mmHg (80.0-100.0) L 11/05/20 16:00 ABG HCO3 50.7 mmol/L (22-26) H* 11/05/20 16:00 ABG O2 Saturation 94.0 % (90-100) 11/05/20 16:00 ABG Base Excess 20.1 mmol/L (-2.0-2.0) H 11/05/20 16:00 [place] Test Postive 11/05/20 16:00 A-a Gradient 236.0 mmHg 11/05/20 16:00 FiO2 60.0 11/05/20 16:00 Blood Gas Comments Marge well- sd 11/05/20 16:00 Sodium 146 mmol/L (136-145) H 11/05/20 05:23 Corrected Sodium 146 mmol/L (136-145) H 11/05/20 05:23 Potassium 4.6 mmol/L (3.5-5.1) 11/05/20 05:23 Chloride 102 mmol/L (98-107) 11/05/20 05:23 Carbon Dioxide 44.6 mmol/L (21-32) H* 11/05/20 05:23 BUN 17 mg/dL (7-18) 11/05/20 05:23 Creatinine 0.94 mg/dL (0.55-1.02) 11/05/20 05:23 Est GFR (MDRD) Af Amer > 60 (>60) 11/05/20 05:23 Est GFR (MDRD) Non-Af > 60 (>60) 11/05/20 05:23 Glucose 120 mg/dL (65-99) H 11/05/20 05:23 Lactic Acid 0.9 mmol/L (0.4-2.0) 11/03/20 17:11 Calcium 9.2 mg/dL (8.5-10.1) 11/05/20 05:23 Corrected Calcium 10.2 mg/dL (8.5-10.1) H 11/05/20 05:23 Total Bilirubin 0.50 mg/dL (0.2-1.0) 11/05/20 05:23 AST 19 Units/L (15-37) 11/05/20 05:23 ALT 30 Units/L (12-78) 11/05/20 05:23 Alkaline Phosphatase 73 Units/L (46-116) 11/05/20 05:23 Creatine Kinase 79 Units/L (26-192) 11/03/20 15:29 CK-MB (CK-2) 1.0 ng/mL (0-4.0) 11/03/20 15:29 CK/CKMB % Calc 1.3 % (<4) 11/03/20 15:29 Troponin I < 0.02 ng/mL (0-1.5) 11/03/20 15:29 B-Natriuretic Peptide 13.5 pg/mL (0-79) 11/04/20 15:03 Total Protein 7.9 g/dL (6.4-8.2) 11/05/20 05:23 Albumin 2.8 g/dL (3.4-5.0) L 11/05/20 05:23 Globulin 5.1 g/dL (2.5-4.5) H 11/05/20 05:23 Albumin/Globulin Ratio 0.5 Ratio (1.1-2.1) L 11/05/20 05:23 TSH 3rd Generation 2.723 uIU/mL (0.358-3.74) 11/03/20 15:29 Specimen Type Catherized urine 11/03/20 15:08 Urine Color Yellow (YELLOW) 11/03/20 15:08 Urine Appearance Clear (CLEAR) 11/03/20 15:08 Urine pH 6.0 (5.0 - 8.0) 11/03/20 15:08 Ur Specific [place] 1.015 (1.000-1.030) 11/03/20 15:08 Urine Protein 2+ (NEGATIVE) 11/03/20 15:08 Urine Glucose (UA) Negative (NEGATIVE) 11/03/20 15:08 Urine Ketones Negative (NEGATIVE) 11/03/20 15:08 Urine Occult Blood Negative (NEGATIVE) 11/03/20 15:08 Urine Nitrite Negative (NEGATIVE) 11/03/20 15:08 Urine Bilirubin Negative (NEGATIVE) 11/03/20 15:08 Urine Urobilinogen Normal (NORMAL) 11/03/20 15:08 Ur Leukocyte Esterase Negative (NEGATIVE) 11/03/20 15:08 Urine RBC 0-2 /HPF (0-3) 11/03/20 15:08 Urine WBC 0-2 /HPF (0-5) 11/03/20 15:08 Ur Squamous Epith Cells Few /HPF (NEGATIVE) 11/03/20 15:08 Ur Transition Epith Cell Rare /HPF (NEGATIVE) 11/03/20 15:08 Amorphous Sediment Trace /HPF (NEGATIVE) 11/03/20 15:08 Urine Bacteria Trace /HPF (NEGATIVE) 11/03/20 15:08 Urine Mucus Few /HPF (NEGATIVE) 11/03/20 15:08 Ur Culture Indicated? No/not indicated 11/03/20 15:08 SARS CoV-2 RNA Rapid FINESSE Negative (NEGATIVE) 11/03/20 14:39 Plan (1) Acute respiratory failure: Status: Acute (2) CHF (congestive heart failure), NYHA class III: Status: Acute Qualifiers: Congestive heart failure type: unspecified Qualified Code(s): I50.9 - Heart failure, unspecified (3) COPD exacerbation: Status: Acute (4) Obesity hypoventilation syndrome: Status: Acute
[2020-11-05] MEDS: LASIX IVP SCH (18:10)
[2020-11-05] MEDS: NS 1000 ML 1,000 ML IV SCH (18:11)
[2020-11-06] MEDS: LASIX IVP SCH ×3 (02:00→18:27)
[2020-11-06 04:39] LABS: BASOPHILS % (AUTO) 0.1 % (0.2-1.0); HEMATOCRIT 52.5 % (36.0-47.0); HEMOGLOBIN 15.6 g/dL (12.0-16.0); LYMPHOCYTES # (AUTO) 0.4 X10^3/uL (1.3-2.9); MEAN CORPUSCULAR HEMOGLOBIN 24.4 pg (27.0-34.0); MEAN CORPUSCULAR HGB CONC 29.8 g/dL (33.0-35.0); MEAN CORPUSCULAR VOLUME 81.8 fL (80.0-100.0); MEAN PLATELET VOLUME 8.8 fL (7.4-11.0); MONOCYTES # (AUTO) 0.1 x10^3/uL (0.3-0.8); MONOCYTES % (AUTO) 2.3 % (0.0-13.0); NEUTROPHILS # (AUTO) 4.3 x10^3/uL (2.2-4.8); NEUTROPHILS % (AUTO) 88.6 % (42.0-75.0); PLATELET COUNT 123 X10^3/uL (150.0-450.0); RED BLOOD COUNT 6.42 X10^6/uL (3.5-5.4); RED CELL DISTRIBUTION WIDTH 21.8 % (11.6-16.5); WHITE BLOOD COUNT 4.9 X10^3/uL (3.6-10.0)
[2020-11-06 05:17] LABS: ABG ALLEN TEST POS; ABG BASE EXCESS 24.3 mmol/L (-2.0-2.0); ABG HCO3 53.9 mmol/L (22-26)
[2020-11-06] MEDS: SOLU-Medrol 125 MG VIAL IVP SCH ×3 (05:21→21:14)
[2020-11-06 05:26] LABS: ALANINE AMINOTRANSFERASE 27 Units/L (12-78); ALBUMIN 2.7 g/dL (3.4-5.0); ALKALINE PHOSPHATASE 65 Units/L (46-116); ASPARTATE AMINO TRANSFERASE 18 Units/L (15-37); BLOOD UREA NITROGEN 27 mg/dL (7-18); CALCIUM 8.9 mg/dL (8.5-10.1); CHLORIDE 99 mmol/L (98-107); COR CA(FOR HYPOALB) 9.9 mg/dL (8.5-10.1); COR NA(FOR HYPERGLY) 148 mmol/L (136-145); CREATININE 1.03 mg/dL (0.55-1.02); SODIUM 147 mmol/L (136-145); TOTAL PROTEIN 7.4 g/dL (6.4-8.2); eGFR NON BLACK RACES 58 (>60)
[2020-11-06 05:31] LABS: CARBON DIOXIDE > 45.0 mmol/L (21-32)
[2020-11-06 05:57] LABS: GIANT PLATELET MODERATE; HYPOCHROMASIA SLIGHT; PLATELET MORPHOLOGY COMMENT ABNORMAL (NORMAL)
[2020-11-06 05:58] LABS: ANISOCYTOSIS 1+; MICROCYTOSIS SLIGHT
--- NOTE | 2020-11-06 06:20 | RAD ---
HISTORYPNEUMONIA, COPD, HTNSTUDYCHEST, 1 VIEWCOMPARISONChest radiograph dated November 05, 2020.FINDINGSThe trachea is midline. The cardiac silhouette is enlarged but stable. Bilateral parenchymal opacities, especially perihilar regions, and lower lung payne are unchanged from prior with residual central interstitial disease. Findings can be seen with atypical edema or infection/pneumonia and should be followed up to complete resolution. No other changes are identified. The bony thorax is unremarkable.IMPRESSIONAs above.Electronically signed by: CHRISTOPHER ONTIVEROS III (Nov 06, 2020 06:19:07)
[2020-11-06] MEDS: LOVENOX INJ 40 MG SYR SC SCH (09:13)
[2020-11-06] MEDS: VSL#3 PO SCH (09:36)
[2020-11-06] MEDS: DUONEB 0.5 MG/3 MG (3 mL) NEB SCH ×4 (09:38→21:00)
[2020-11-06] MEDS: PULMICORT NEB TX 0.5 MG NEB SCH ×2 (09:38→21:00)
--- NOTE | 2020-11-06 09:43 | DR.CONSULT ---
CONSULT Consultation for Day of: Date: 11/04/20 Chief Complaint Chief Complaint: Called for tele consultation to evaluate patient who is on BiPAP for further treatment and recommendations. Patient had been admitted with dyspnea. She has a background of COPD, CHF, Morbid obesity and Chronic CO2 retention. She also likely has SYMONE. Patient was started on BiLevel PAP on AVAPS mode but was still having problems with tolerance of the mask and was having no clear improvement on her ABGs. Allergies Allergies Allergy/AdvReac Type Severity Reaction Status Date / Time shellfish derived Allergy Verified 11/03/20 19:52 Past Medical History Past Medical History: CHF, COPD and Hypertension Past Surgical History Surgical History: Family History Family Medical History: Diabetes Mellitus, Cancer and Hypertension Social History Does patient currently use any type of tobacco product: Yes Have you used tobacco products in the last 12 months: Yes Type of Tobacco Use: Cigarettes Does any household member use tobacco: Yes Alcohol Use: Heavy and DAILY Drug Use: Marijuana Medications Home Medications: shellfish derived Allergy (Verified 11/03/20 19:52) CONTINUE taking the following medications amlodipine 10 mg PO DAILY 11/03/20 [History] Review of Systems Constitutional: No Symptoms Reported, See HPI and Other; denies Fever, Chills, Sweats, Weakness and Malaise ENT: No Symptoms Reported Respiratory: Shortness of Breath Cardiovascular: Edema Gastrointestinal: No Symptoms Reported Musculoskeletal: No Symptoms Reported Skin: No Symptoms Reported Neurological: No Symptoms Reported Physical Exam Vital Signs: Temperature 97.9 F Pulse Rate 64 Respiratory Rate 20 Blood Pressure 140/67 O2 Sat by Pulse Oximetry 100 On Remote Physical exam through video, Patient was initially on BiPAP. She was taken off BiPAP and was in NAD. Able to complete full sentences. She was awake and oriented with slightly elevated respiratory rate but otherwise comfortable. Plan Plan: Assessment: Respiratory failure COPD CHF Morbid obesity Likely SYMONE Plan: Labs and chest x-ray were reviewed with nursing. Initial plan was to try to intubate patient for failure of BiPAP. However, after videoconferencing and noting that the patient was not in distress, we moved forward with adjusting BiPAP and following ABGs. Patient was given an extra dose of Lasix. She was on Lasix twice daily. The goal is to achieve a negative balance. She was already on antibiotics for coverage of CAP. Continue ceftriaxone and Zithromax. Follow-up ABGs blood slightly improved and another extra dose of lasix was ordered. Further adjustments were made on the BiPAP machine, and ABGs requested for the following morning. With clear improvement in patient's pH, BiPAP was continued the following day with breaks recommended for feeding only. ABGs in the afternoon on 11/05/20 showed continued improvement. Lasix was increased to 3 times daily. Further management per primary team. Pleas e call back for further questions or concerns.
[2020-11-06] MEDS: FORTAZ or TAZICEF VIAL INJ 1 G in NS 100 ML IV + SPIKE MINIBAG* 100 ML IV SCH ×3 (10:37→21:14)
[2020-11-06] MEDS: LEVAQUIN PREMIX IV 500 MG 500 MG/100 ML BAG IV SCH (10:42)
[2020-11-06] MEDS: DIFLUCAN 200 MG IV PREMIX* 200 MG/100 ML BAG IV SCH (12:55)
[2020-11-06] MEDS: NS 1000 ML 1,000 ML IV SCH (18:24)
[2020-11-06] MEDS ORDERED: RESTORIL CAP 15 MG PO PRN (19:47)
--- NOTE | 2020-11-06 19:57 | PCM.PROG ---
Progress Note - Progress Note for Day of Date of Exam: 11/06/20 - Subjective Subjective: IS A 60 YEAR B/F PATIENT OF . SHE IS BEING TREATED FOR CAP, RESPIRATORY FAILURE, CHF, COPD, A-FIB, AND HTN. SAUTRATIONS ON ADMISSION WERE REPORTEDLY IN THE 50s. SHE WAS PLACED ON THE BIPAP AT THAT TIME. TODAY, SHE IS ALERT AND ORIENTED, LYING IN BED ON MORNING ROUNDS. SHE IS NOT WEARING ANY OXYGEN AT THE PRESENT TIME. OXYGEN TUBING IS LYING ON THE BED. HER SATURATIONS ON ROOM AIR ARE 90% AT THIS TIME. SHE DOES NOT APPEAR TO BE IN ANY RESPIRATORY DISTRESS WHILE SHE IS TALKING TO US. SHE DOES REPORT CONTINUED COUGH AND INTERMITTENT SHORTNESS OF BREATH. ON EXAMINATION, HEART IS REGULAR IN RATE AND RHYTHM. BILATERAL LUNGS ARE NOTED WITH SCATTERED WHEEZING AND RHONCHI THROUGHOUT. ABDOMEN IS OBESE, SOFT, AND NON-TENDER WITH NORMAL BOWEL SOUNDS NOTED IN ALL QUADRANTS. JADE CATHETER NOTED TO BEDSIDE DRAINAGE. HER VITALS THIS MORNING ARE: 97.8-58-30-90%RA-139/83. LABS WERE OBTAINED. ABNORMAL LAB VALUES INCLUDE THE FOLLOWING: RBC 6.42, HCT 52.5, PLT COUNT 123, SODIUM 147, CARBON DIOXIDE >45, BUN 27, CREATININE 1.03, GLUCOSE 133, ALBUMIN 2.7, GLOBULIN 4.7. ABG TODAY REVEALED: PH 7.410, PC02 85, P02 93, HC03 53.9, 02 SAT 97, BASE EXCESS 24.3, FI02 60.0. BLOOD AND SPUTUM CULTURES ARE PENDING. THERE IS GROWTH OF YEAST IN SPUTUM. A CHEST XRAY WAS OBTAINED AND REVEALED: The trachea is midline. The cardiac silhouette is enlarged but stable. Bilateral parenchymal opacities, especially perihilar regions, and lower lung payne are unchanged from prior with residual central interstitial disease. Findings can be seen with atypical edema or infection/pneumonia and should be followed up to complete resolution. No other changes are identified. The bony thorax is unremarkable. SHE IS CURRENTLY RECEIVING NS AT [facility], ROCEPHIN 1G IV DAILY, AZITHROMYCIN 500MG IV DAILY, DUONEBS QID, PULMICORT NEBS BID, LOVENOX 40MG SC DAILY, LASIX 40MG IV Q8H, SOLU-MEDROL 80MG IV Q8H, PROBIOTICS. TODAY, WE WILL DISCONTINUE THE ROCEPHIN AND AZITHROMYCIN. WE WILL ADD FORTAZ 1G IV Q8H, LEVAQUIN 500MG IV DAILY, AND DIFLUCAN 200MG IV DAILY. OTHERWISE, WE PLAN TO FOLLOW UP WITH AM LABS AND CONTINUE TO MONITOR. TIME SPENT ON CLINICAL ASSESSMENT, REVIEWING LABS AND IMAGING, DECISION MAKING, AND DOCUMENTATION WAS GREATER THAN 45 MINUTES. - Past Medical Family Social History Past Med/Fam/Surg Hx: No changes since H&P Allergies: Allergies shellfish derived Allergy (Verified 11/03/20 19:52) - Review of Systems ROS: No change since H&P - Vital Signs and I&O's Vital Signs: Temperature 98.1 F Pulse Rate 62 Respiratory Rate 21 Blood Pressure 142/63 O2 Sat by Pulse Oximetry 95 Intake and Output: Intake & Output 11/04/20 11/05/20 11/06/20 11/07/20 11:59 11:59 11:59 11:59 Intake Total 600 / 600 397 / 397 906 / 906 898 / 898 Output Total 3050 / 3050 2725 / 2725 2500 / 2500 1100 / 1100 Balance -2450 / -2450 -2328 / -2328 -1594 / -1594 -202 / -202 - Physical Exam Oriented: Normal Eyes: Normal Ear: Normal Nose: Normal Throat: Normal Respiratory: Generalized, Diminished, Wheezes, Rhonchi Cardiovascular: Normal : Normal Auscultation: Bowel Sounds: Normal Palpation: Normal Tenderness: Normal Skin: Normal Musculoskeletal: Normal Psychiatric: Normal Mood Description: Calm, Appropriate Affect: Normal Speech Pattern: Clear - Laboratory and Diagnostics Result Diagrams: 11/06/20 03:24 11/06/20 03:24 Labs: 11/04/20 00:44 Sputum - Expectorated Sputum Sputum Culture - Preliminary 11/04/20 00:44 Sputum - Expectorated Sputum - Final 11/03/20 17:18 Blood Blood Culture - Preliminary 11/03/20 17:11 Blood Blood Culture - Preliminary Laboratory WBC 4.9 X10^3/uL (3.6-10.0) 11/06/20 03:24 RBC 6.42 X10^6/uL (3.5-5.4) H 11/06/20 03:24 Hgb 15.6 g/dL (12.0-16.0) 11/06/20 03:24 Hct 52.5 % (36.0-47.0) H 11/06/20 03:24 MCV 81.8 fL (80.0-100.0) 11/06/20 03:24 MCH 24.4 pg (27.0-34.0) L 11/06/20 03:24 MCHC 29.8 g/dL (33.0-35.0) L 11/06/20 03:24 RDW 21.8 % (11.6-16.5) H 11/06/20 03:24 Plt Count 123 X10^3/uL (150.0-450.0) L 11/06/20 03:24 Plt Count Comment Decreased (ADEQUATE) A 11/06/20 03:24 MPV 8.8 fL (7.4-11.0) 11/06/20 03:24 Neut % (Auto) 88.6 % (42.0-75.0) H 11/06/20 03:24 Lymph % (Auto) 9.0 % (21.0-51.0) L 11/06/20 03:24 [place] % (Auto) 2.3 % (0.0-13.0) 11/06/20 03:24 Eos % (Auto) 0.0 % (0.9-2.9) L 11/06/20 03:24 Baso % (Auto) 0.1 % (0.2-1.0) L 11/06/20 03:24 Neut # (Auto) 4.3 x10^3/uL (2.2-4.8) 11/06/20 03:24 Lymph # (Auto) 0.4 X10^3/uL (1.3-2.9) L 11/06/20 03:24 [place] # (Auto) 0.1 x10^3/uL (0.3-0.8) L 11/06/20 03:24 Eos # (Auto) 0.0 x10^3/uL (0.0-0.2) 11/06/20 03:24 Baso # (Auto) 0.0 X10^3/uL (0.0-0.1) 11/06/20 03:24 Absolute Nucleated RBC 1.1 /100WBC 11/06/20 03:24 Giant Platelets Moderate 11/06/20 03:24 Plt Morphology Comment Abnormal (NORMAL) A 11/06/20 03:24 RBC Morphology Abnormal (NORMAL) A 11/06/20 03:24 Hypochromasia Slight A 11/06/20 03:24 Anisocytosis 1+ A 11/06/20 03:24 Microcytosis Slight A 11/06/20 03:24 PT 13.4 SECONDS (11.8-14.3) 11/03/20 15:29 INR Target Range - 11/03/20 15: INR 1.07 (0.8-1.3) 11/03/20 15:29 APTT 25.0 SECONDS (22.9-36.5) 11/03/20 15: PTT Comment - 11/03/20 15: D-Dimer 0.38 ug/ml (0.0-0.57) 11/03/20 15:29 Sample Site Rr 11/06/20 05:10 ABG pH 7.410 (7.35-7.45) 11/06/20 05:10 ABG pCO2 85.0 mmHg (35.0-45.0) H* 11/06/20 05:10 ABG pO2 93.0 mmHg (80.0-100.0) 11/06/20 05:10 ABG HCO3 53.9 mmol/L (22-26) H* 11/06/20 05:10 ABG O2 Saturation 97.0 % (90-100) 11/06/20 05:10 ABG Base Excess 24.3 mmol/L (-2.0-2.0) H 11/06/20 05:10 [place] Test Pos 11/06/20 05:10 A-a Gradient 229.0 mmHg 11/06/20 05:10 FiO2 60.0 11/06/20 05:10 Blood Gas Comments Marge well ae 11/06/20 05:10 Sodium 147 mmol/L (136-145) H 11/06/20 03:24 Corrected Sodium 148 mmol/L (136-145) H 11/06/20 03:24 Potassium 4.5 mmol/L (3.5-5.1) 11/06/20 03:24 Chloride 99 mmol/L (98-107) 11/06/20 03:24 Carbon Dioxide > 45.0 mmol/L (21-32) H* 11/06/20 03:24 BUN 27 mg/dL (7-18) H 11/06/20 03:24 Creatinine 1.03 mg/dL (0.55-1.02) H 11/06/20 03:24 Est GFR (MDRD) Af Amer > 60 (>60) 11/06/20 03:24 Est GFR (MDRD) Non-Af 58 (>60) L 11/06/20 03:24 Glucose 133 mg/dL (65-99) H 11/06/20 03:24 Lactic Acid 0.9 mmol/L (0.4-2.0) 11/03/20 17:11 Calcium 8.9 mg/dL (8.5-10.1) 11/06/20 03:24 Corrected Calcium 9.9 mg/dL (8.5-10.1) 11/06/20 03:24 Total Bilirubin 0.40 mg/dL (0.2-1.0) 11/06/20 03:24 AST 18 Units/L (15-37) 11/06/20 03:24 ALT 27 Units/L (12-78) 11/06/20 03:24 Alkaline Phosphatase 65 Units/L (46-116) 11/06/20 03:24 Creatine Kinase 79 Units/L (26-192) 11/03/20 15:29 CK-MB (CK-2) 1.0 ng/mL (0-4.0) 11/03/20 15:29 CK/CKMB % Calc 1.3 % (<4) 11/03/20 15:29 Troponin I < 0.02 ng/mL (0-1.5) 11/03/20 15:29 B-Natriuretic Peptide 13.5 pg/mL (0-79) 11/04/20 15:03 Total Protein 7.4 g/dL (6.4-8.2) 11/06/20 03:24 Albumin 2.7 g/dL (3.4-5.0) L 11/06/20 03:24 Globulin 4.7 g/dL (2.5-4.5) H 11/06/20 03:24 Albumin/Globulin Ratio 0.6 Ratio (1.1-2.1) L 11/06/20 03:24 TSH 3rd Generation 2.723 uIU/mL (0.358-3.74) 11/03/20 15:29 Specimen Type Catherized urine 11/03/20 15:08 Urine Color Yellow (YELLOW) 11/03/20 15:08 Urine Appearance Clear (CLEAR) 11/03/20 15:08 Urine pH 6.0 (5.0 - 8.0) 11/03/20 15:08 Ur Specific [place] 1.015 (1.000-1.030) 11/03/20 15:08 Urine Protein 2+ (NEGATIVE) 11/03/20 15:08 Urine Glucose (UA) Negative (NEGATIVE) 11/03/20 15:08 Urine Ketones Negative (NEGATIVE) 11/03/20 15:08 Urine Occult Blood Negative (NEGATIVE) 11/03/20 15:08 Urine Nitrite Negative (NEGATIVE) 11/03/20 15:08 Urine Bilirubin Negative (NEGATIVE) 11/03/20 15:08 Urine Urobilinogen Normal (NORMAL) 11/03/20 15:08 Ur Leukocyte Esterase Negative (NEGATIVE) 11/03/20 15:08 Urine RBC 0-2 /HPF (0-3) 11/03/20 15:08 Urine WBC 0-2 /HPF (0-5) 11/03/20 15:08 Ur Squamous Epith Cells Few /HPF (NEGATIVE) 11/03/20 15:08 Ur Transition Epith Cell Rare /HPF (NEGATIVE) 11/03/20 15:08 Amorphous Sediment Trace /HPF (NEGATIVE) 11/03/20 15:08 Urine Bacteria Trace /HPF (NEGATIVE) 11/03/20 15:08 Urine Mucus Few /HPF (NEGATIVE) 11/03/20 15:08 Ur Culture Indicated? No/not indicated 11/03/20 15:08 SARS CoV-2 RNA Rapid FINESSE Negative (NEGATIVE) 11/03/20 14:39 - Plan (1) Pneumonia Status: Acute Qualifiers: Pneumonia type: due to unspecified organism Laterality: bilateral Lung location: unspecified part of lung Qualified Code(s): J18.9 - Pneumonia, unspecified organism (2) Acute respiratory failure Status: Acute (3) COPD exacerbation Status: Acute (4) CHF (congestive heart failure), NYHA class III Status: Acute Qualifiers: Congestive heart failure type: unspecified Qualified Code(s): I50.9 - Heart failure, unspecified (5) A-fib Status: Chronic Qualifiers: Atrial fibrillation type: paroxysmal Qualified Code(s): I48.0 - Paroxysmal atrial fibrillation (6) HTN (hypertension) Status: Chronic Qualifiers: Hypertension type: primary hypertension Qualified Code(s): I10 - Essential (primary) hypertension
[2020-11-06] MEDS: NICOTINE PATCH TD SCH (23:16)
[2020-11-07] MEDS: LASIX IVP SCH ×3 (02:00→17:38)
[2020-11-07] MEDS: SOLU-Medrol 125 MG VIAL IVP SCH ×3 (05:02→21:01)
[2020-11-07] MEDS: FORTAZ or TAZICEF VIAL INJ 1 G in NS 100 ML IV + SPIKE MINIBAG* 100 ML IV SCH ×3 (05:03→21:00)
[2020-11-07 05:11] LABS: BASOPHILS % (AUTO) 0.5 % (0.2-1.0); EOSINOPHILS % (AUTO) 0.1 % (0.9-2.9); HEMATOCRIT 53.8 % (36.0-47.0); HEMOGLOBIN 16.3 g/dL (12.0-16.0); LYMPHOCYTES # (AUTO) 0.4 X10^3/uL (1.3-2.9); MEAN CORPUSCULAR HEMOGLOBIN 24.6 pg (27.0-34.0); MEAN CORPUSCULAR HGB CONC 30.3 g/dL (33.0-35.0); MEAN CORPUSCULAR VOLUME 81.1 fL (80.0-100.0); MEAN PLATELET VOLUME 8.8 fL (7.4-11.0); MONOCYTES # (AUTO) 0.1 x10^3/uL (0.3-0.8); MONOCYTES % (AUTO) 2.1 % (0.0-13.0); NEUTROPHILS # (AUTO) 5.2 x10^3/uL (2.2-4.8); NEUTROPHILS % (AUTO) 90.3 % (42.0-75.0); PLATELET COUNT 122 X10^3/uL (150.0-450.0); RED BLOOD COUNT 6.63 X10^6/uL (3.5-5.4); RED CELL DISTRIBUTION WIDTH 22.2 % (11.6-16.5); WHITE BLOOD COUNT 5.8 X10^3/uL (3.6-10.0)
[2020-11-07 05:23] LABS: ALANINE AMINOTRANSFERASE 21 Units/L (12-78); ALBUMIN 2.8 g/dL (3.4-5.0); ALKALINE PHOSPHATASE 61 Units/L (46-116); ASPARTATE AMINO TRANSFERASE 14 Units/L (15-37); BLOOD UREA NITROGEN 30 mg/dL (7-18); CALCIUM 9.5 mg/dL (8.5-10.1); CHLORIDE 100 mmol/L (98-107); COR CA(FOR HYPOALB) 10.5 mg/dL (8.5-10.1); COR NA(FOR HYPERGLY) 148 mmol/L (136-145); CREATININE 1.14 mg/dL (0.55-1.02); SODIUM 146 mmol/L (136-145); TOTAL PROTEIN 7.6 g/dL (6.4-8.2); eGFR NON BLACK RACES 52 (>60)
[2020-11-07 05:45] LABS: CARBON DIOXIDE 44.9 mmol/L (21-32)
[2020-11-07 05:48] LABS: ABG BASE EXCESS 27.3 mmol/L (-2.0-2.0)
[2020-11-07 05:49] LABS: ABG ALLEN TEST POS; ABG HCO3 57.1 mmol/L (22-26)
[2020-11-07 06:23] LABS: ANISOCYTOSIS 2+; MICROCYTOSIS SLIGHT; PLATELET MORPHOLOGY COMMENT NORMAL (NORMAL)
[2020-11-07 06:24] LABS: HYPOCHROMASIA SLIGHT
--- NOTE | 2020-11-07 06:33 | RAD ---
HISTORYPNEUMONIA, COPD, HTNSTUDYCHEST, 1 VIEWCOMPARISONChest radiograph dated November 05, 2020.FINDINGSThe trachea is midline. The cardiac silhouette is enlarged but stable. Bilateral parenchymal opacities, especially perihilar regions, and lower lung payne are unchanged from prior with residual central interstitial disease. Findings can be seen with atypical edema or infection/pneumonia and should be followed up to complete resolution. No other cardiopulmonary changes are identified. The bony thorax is unremarkable.IMPRESSIONStable chest with unchanged pulmonary parenchymal disease without acute cardiopulmonary changes as above.Electronically signed by: CHRISTOPHER ONTIVEROS III (Nov 07, 2020 06:31:22)
[2020-11-07] MEDS: DUONEB 0.5 MG/3 MG (3 mL) NEB SCH ×4 (09:28→21:09)
[2020-11-07] MEDS: PULMICORT NEB TX 0.5 MG NEB SCH ×2 (09:28→21:09)
[2020-11-07] MEDS: NICOTINE PATCH TD SCH (09:31)
[2020-11-07] MEDS: DIFLUCAN 200 MG IV PREMIX* 200 MG/100 ML BAG IV SCH (09:31)
[2020-11-07] MEDS: VSL#3 PO SCH (09:32)
[2020-11-07] MEDS: LOVENOX INJ 40 MG SYR SC SCH (09:32)
[2020-11-07] MEDS: LEVAQUIN PREMIX IV 500 MG 500 MG/100 ML BAG IV SCH (09:32)
[2020-11-07] MEDS ORDERED: KLONOPIN TAB 0.5 MG PO PRN (11:18)
--- NOTE | 2020-11-07 11:20 | PCM.PROG ---
Progress Note - Progress Note for Day of Date of Exam: 11/07/20 - Subjective Subjective: IS A 60 YEAR B/F PATIENT OF . SHE IS BEING TREATED FOR CAP, RESPIRATORY FAILURE, CHF, COPD, A-FIB, AND HTN. SAUTRATIONS ON ADMISSION WERE REPORTEDLY IN THE 50s. SHE WAS PLACED ON THE BIPAP AT THAT TIME. TODAY, SHE IS ALERT AND ORIENTED, LYING IN BED ON MORNING ROUNDS. SHE IS CURRENTLY UTILIZING OXYGEN VIA NASAL CANNULA AT 4 LITERS/MINUTE. SHE DOES REPORT CONTINUED COUGH AND INTERMITTENT SHORTNESS OF BREATH. SHE ALSO REPORTS BEING UNABLE TO REST WELL AT NIGHT. ON EXAMINATION, HEART IS REGULAR IN RATE AND RHYTHM. BILATERAL LUNGS ARE NOTED WITH SCATTERED WHEEZING AND RHONCHI THROUGHOUT. ABDOMEN IS OBESE, SOFT, AND NON-TENDER WITH NORMAL BOWEL SOUNDS NOTED IN ALL QUADRANTS. JADE CATHETER NOTED TO BEDSIDE DRAINAGE. HER VITALS THIS MORNING ARE: 98.1-53-28-99%-148/67. LABS WERE OBTAINED. ABNORMAL LAB VALUES INCLUDE THE FOLLOWING: RBC 6.63, HGB 16.3, HCT 53.8, PLT COUNT 122, SODIUM 146, CARBON DIOXIDE 44.9, BUN 30, CREATININE 1.14, GLUCOSE 182, AST 14, ALBUMIN 2.8, GLOBULIN 4.8. BLOOD AND SPUTUM CULTURES ARE PENDING. A CHEST XRAY WAS OBTAINED AND REVEALED: Stable chest with unchanged pulmonary parenchymal disease without acute cardiopulmonary changes. SHE IS CURRENTLY RECEIVING NS AT KVO, FORTAZ 1G IV Q8H, LEVAQUIN 500MG IV DAILY, DIFLUCAN 200MG IV DAILY, DUONEBS QID, PULMICORT NEBS BID, LOVENOX 40MG SC DAILY, LASIX 40MG IV Q8H, SOLU-MEDROL 80MG IV Q8H, PROBIOTICS. TODAY, WE WILL ADD KLONOPIN 0.5MG PO BID PRN FOR REST. OTHERWISE, WE PLAN TO FOLLOW UP WITH AM LABS AND CONTINUE TO MONITOR. TIME SPENT ON CLINICAL ASSESSMENT, REVIEWING LABS AND IMAGING, DECISION MAKING, AND DOCUMENTATION WAS GREATER THAN 45 MINUTES. - Past Medical Family Social History Past Med/Fam/Surg Hx: No changes since H&P Allergies: Allergies shellfish derived Allergy (Verified 11/03/20 19:52) - Review of Systems ROS: No change since H&P - Vital Signs and I&O's Vital Signs: Temperature 98.1 F Pulse Rate 75 Respiratory Rate 28 Blood Pressure 148/67 O2 Sat by Pulse Oximetry 96 Intake and Output: Intake & Output 11/04/20 11/05/20 11/06/20 11/07/20 11:59 11:59 11:59 11:59 Intake Total 600 / 600 397 / 397 906 / 906 1616 / 1616 Output Total 3050 / 3050 2725 / 2725 2500 / 2500 3500 / 3500 Balance -2450 / -2450 -2328 / -2328 -1594 / -1594 -1884 / -1884 - Physical Exam Oriented: Normal Eyes: Normal Ear: Normal Nose: Normal Throat: Normal Respiratory: Generalized, Diminished, Wheezes, Rhonchi Cardiovascular: Normal : Normal Auscultation: Bowel Sounds: Normal Tenderness: Normal Skin: Normal Musculoskeletal: Normal Psychiatric: Normal Mood Description: Calm, Appropriate Affect: Normal Speech Pattern: Clear - Laboratory and Diagnostics Result Diagrams: 11/07/20 04:50 11/07/20 04:50 Labs: 11/04/20 00:44 Sputum - Expectorated Sputum Sputum Culture - Preliminary 11/04/20 00:44 Sputum - Expectorated Sputum - Final 11/03/20 17:18 Blood Blood Culture - Preliminary 11/03/20 17:11 Blood Blood Culture - Preliminary Laboratory WBC 5.8 X10^3/uL (3.6-10.0) 11/07/20 04:50 RBC 6.63 X10^6/uL (3.5-5.4) H 11/07/20 04:50 Hgb 16.3 g/dL (12.0-16.0) H 11/07/20 04:50 Hct 53.8 % (36.0-47.0) H 11/07/20 04:50 MCV 81.1 fL (80.0-100.0) 11/07/20 04:50 MCH 24.6 pg (27.0-34.0) L 11/07/20 04:50 MCHC 30.3 g/dL (33.0-35.0) L 11/07/20 04:50 RDW 22.2 % (11.6-16.5) H 11/07/20 04:50 Plt Count 122 X10^3/uL (150.0-450.0) L 11/07/20 04:50 Plt Count Comment Decreased (ADEQUATE) A 11/07/20 04:50 MPV 8.8 fL (7.4-11.0) 11/07/20 04:50 Neut % (Auto) 90.3 % (42.0-75.0) H 11/07/20 04:50 Lymph % (Auto) 7.0 % (21.0-51.0) L 11/07/20 04:50 [place] % (Auto) 2.1 % (0.0-13.0) 11/07/20 04:50 Eos % (Auto) 0.1 % (0.9-2.9) L 11/07/20 04:50 Baso % (Auto) 0.5 % (0.2-1.0) 11/07/20 04:50 Neut # (Auto) 5.2 x10^3/uL (2.2-4.8) H 11/07/20 04:50 Lymph # (Auto) 0.4 X10^3/uL (1.3-2.9) L 11/07/20 04:50 [place] # (Auto) 0.1 x10^3/uL (0.3-0.8) L 11/07/20 04:50 Eos # (Auto) 0.0 x10^3/uL (0.0-0.2) 11/07/20 04:50 Baso # (Auto) 0.0 X10^3/uL (0.0-0.1) 11/07/20 04:50 Absolute Nucleated RBC 0.3 /100WBC 11/07/20 04:50 Total Counted 100 11/07/20 04:50 Neutrophils % (Manual) 92 % (39-76) H 11/07/20 04:50 Lymphocytes % (Manual) 8 % (13-43) L 11/07/20 04:50 Giant Platelets Moderate 11/06/20 03:24 Plt Morphology Comment Normal (NORMAL) 11/07/20 04:50 RBC Morphology Abnormal (NORMAL) A 11/07/20 04:50 Hypochromasia Slight A 11/07/20 04:50 Anisocytosis 2+ A 11/07/20 04:50 Microcytosis Slight A 11/07/20 04:50 PT 13.4 SECONDS (11.8-14.3) 11/03/20 15:29 INR Target Range - 11/03/20 15:29 INR 1.07 (0.8-1.3) 11/03/20 15:29 APTT 25.0 SECONDS (22.9-36.5) 11/03/20 15:29 PTT Comment - 11/03/20 15:29 D-Dimer 0.38 ug/ml (0.0-0.57) 11/03/20 15:29 Sample Site Rr 11/07/20 05:00 ABG pH 7.430 (7.35-7.45) 11/07/20 05:00 ABG pCO2 86.0 mmHg (35.0-45.0) H* 11/07/20 05:00 ABG pO2 62.0 mmHg (80.0-100.0) L 11/07/20 05:00 ABG HCO3 57.1 mmol/L (22-26) H* 11/07/20 05:00 ABG O2 Saturation 92.0 % (90-100) 11/07/20 05:00 ABG Base Excess 27.3 mmol/L (-2.0-2.0) H 11/07/20 05:00 [place] Test Pos 11/07/20 05:00 A-a Gradient 116.0 mmHg 11/07/20 05:00 FiO2 40.0 11/07/20 05:00 Blood Gas Comments Marge well 11/07/20 05:00 Sodium 146 mmol/L (136-145) H 11/07/20 04:50 Corrected Sodium 148 mmol/L (136-145) H 11/07/20 04:50 Potassium 3.9 mmol/L (3.5-5.1) 11/07/20 04:50 Chloride 100 mmol/L (98-107) 11/07/20 04:50 Carbon Dioxide 44.9 mmol/L (21-32) H* 11/07/20 04:50 BUN 30 mg/dL (7-18) H 11/07/20 04:50 Creatinine 1.14 mg/dL (0.55-1.02) H 11/07/20 04:50 Est GFR (MDRD) Af Amer > 60 (>60) 11/07/20 04:50 Est GFR (MDRD) Non-Af 52 (>60) L 11/07/20 04:50 Glucose 182 mg/dL (65-99) H 11/07/20 04:50 Lactic Acid 0.9 mmol/L (0.4-2.0) 11/03/20 17:11 Calcium 9.5 mg/dL (8.5-10.1) 11/07/20 04:50 Corrected Calcium 10.5 mg/dL (8.5-10.1) H 11/07/20 04:50 Total Bilirubin 0.60 mg/dL (0.2-1.0) 11/07/20 04:50 AST 14 Units/L (15-37) L 11/07/20 04:50 ALT 21 Units/L (12-78) 11/07/20 04:50 Alkaline Phosphatase 61 Units/L (46-116) 11/07/20 04:50 Creatine Kinase 79 Units/L (26-192) 11/03/20 15:29 CK-MB (CK-2) 1.0 ng/mL (0-4.0) 11/03/20 15:29 CK/CKMB % Calc 1.3 % (<4) 11/03/20 15:29 Troponin I < 0.02 ng/mL (0-1.5) 11/03/20 15:29 B-Natriuretic Peptide 20.9 pg/mL (0-79) 11/07/20 04:50 Total Protein 7.6 g/dL (6.4-8.2) 11/07/20 04:50 Albumin 2.8 g/dL (3.4-5.0) L 11/07/20 04:50 Globulin 4.8 g/dL (2.5-4.5) H 11/07/20 04:50 Albumin/Globulin Ratio 0.6 Ratio (1.1-2.1) L 11/07/20 04:50 TSH 3rd Generation 2.723 uIU/mL (0.358-3.74) 11/03/20 15:29 Specimen Type Catherized urine 11/03/20 15:08 Urine Color Yellow (YELLOW) 11/03/20 15:08 Urine Appearance Clear (CLEAR) 11/03/20 15:08 Urine pH 6.0 (5.0 - 8.0) 11/03/20 15:08 Ur Specific [place] 1.015 (1.000-1.030) 11/03/20 15:08 Urine Protein 2+ (NEGATIVE) 11/03/20 15:08 Urine Glucose (UA) Negative (NEGATIVE) 11/03/20 15:08 Urine Ketones Negative (NEGATIVE) 11/03/20 15:08 Urine Occult Blood Negative (NEGATIVE) 11/03/20 15:08 Urine Nitrite Negative (NEGATIVE) 11/03/20 15:08 Urine Bilirubin Negative (NEGATIVE) 11/03/20 15:08 Urine Urobilinogen Normal (NORMAL) 11/03/20 15:08 Ur Leukocyte Esterase Negative (NEGATIVE) 11/03/20 15:08 Urine RBC 0-2 /HPF (0-3) 11/03/20 15:08 Urine WBC 0-2 /HPF (0-5) 11/03/20 15:08 Ur Squamous Epith Cells Few /HPF (NEGATIVE) 11/03/20 15:08 Ur Transition Epith Cell Rare /HPF (NEGATIVE) 11/03/20 15:08 Amorphous Sediment Trace /HPF (NEGATIVE) 11/03/20 15:08 Urine Bacteria Trace /HPF (NEGATIVE) 11/03/20 15:08 Urine Mucus Few /HPF (NEGATIVE) 11/03/20 15:08 Ur Culture Indicated? No/not indicated 11/03/20 15:08 SARS CoV-2 RNA Rapid FINESSE Negative (NEGATIVE) 11/03/20 14:39 - Plan (1) Pneumonia Status: Acute Qualifiers: Pneumonia type: due to unspecified organism Laterality: bilateral Lung location: unspecified part of lung Qualified Code(s): J18.9 - Pneumonia, unspecified organism (2) Acute respiratory failure Status: Acute Qualifiers: Respiratory failure complication: unspecified whether with hypoxia or hypercapnia Qualified Code(s): J96.00 - Acute respiratory failure, unspecified whether with hypoxia or hypercapnia (3) COPD exacerbation Status: Acute (4) CHF (congestive heart failure), NYHA class III Status: Acute Qualifiers: Congestive heart failure type: unspecified Qualified Code(s): I50.9 - Heart failure, unspecified (5) A-fib Status: Chronic Qualifiers: Atrial fibrillation type: paroxysmal Qualified Code(s): I48.0 - Paroxysmal atrial fibrillation (6) HTN (hypertension) Status: Chronic Qualifiers: Hypertension type: primary hypertension Qualified Code(s): I10 - Essential (primary) hypertension
[2020-11-07] MEDS: NS 1000 ML 1,000 ML IV SCH (18:07)
[2020-11-07] MEDS: COLACE CAP 100 MG PO SCH ×2 (20:52→21:57)
[2020-11-08] MEDS: LASIX IVP SCH ×3 (02:00→18:17)
[2020-11-08] MEDS: SOLU-Medrol 125 MG VIAL IVP SCH ×3 (05:02→21:00)
[2020-11-08] MEDS: FORTAZ or TAZICEF VIAL INJ 1 G in NS 100 ML IV + SPIKE MINIBAG* 100 ML IV SCH (05:03)
[2020-11-08 05:17] LABS: ALANINE AMINOTRANSFERASE 19 Units/L (12-78); ALBUMIN 2.6 g/dL (3.4-5.0); ALKALINE PHOSPHATASE 57 Units/L (46-116); BLOOD UREA NITROGEN 26 mg/dL (7-18); CALCIUM 9.5 mg/dL (8.5-10.1); COR CA(FOR HYPOALB) 10.6 mg/dL (8.5-10.1); COR NA(FOR HYPERGLY) 147 mmol/L (136-145); CREATININE 1.13 mg/dL (0.55-1.02); SODIUM 143 mmol/L (136-145); TOTAL PROTEIN 7.5 g/dL (6.4-8.2); eGFR NON BLACK RACES 52 (>60)
[2020-11-08 05:24] LABS: BASOPHILS % (AUTO) 0.4 % (0.2-1.0); EOSINOPHILS % (AUTO) 0.1 % (0.9-2.9); HEMATOCRIT 54.2 % (36.0-47.0); HEMOGLOBIN 16.8 g/dL (12.0-16.0); LYMPHOCYTES # (AUTO) 0.3 X10^3/uL (1.3-2.9); LYMPHOCYTES % (AUTO) 6.6 % (21.0-51.0); MEAN CORPUSCULAR HEMOGLOBIN 25.1 pg (27.0-34.0); MEAN CORPUSCULAR HGB CONC 30.9 g/dL (33.0-35.0); MEAN CORPUSCULAR VOLUME 81.2 fL (80.0-100.0); MEAN PLATELET VOLUME 8.6 fL (7.4-11.0); MONOCYTES # (AUTO) 0.1 x10^3/uL (0.3-0.8); MONOCYTES % (AUTO) 2.3 % (0.0-13.0); NEUTROPHILS # (AUTO) 4.7 x10^3/uL (2.2-4.8); NEUTROPHILS % (AUTO) 90.6 % (42.0-75.0); PLATELET COUNT 111 X10^3/uL (150.0-450.0); RED BLOOD COUNT 6.67 X10^6/uL (3.5-5.4); WHITE BLOOD COUNT 5.2 X10^3/uL (3.6-10.0)
[2020-11-08 05:30] LABS: ASPARTATE AMINO TRANSFERASE 18 Units/L (15-37); CHLORIDE 99 mmol/L (98-107)
[2020-11-08 05:34] LABS: CARBON DIOXIDE 44.1 mmol/L (21-32)
[2020-11-08 06:03] LABS: ANISOCYTOSIS 1+; GIANT PLATELET FEW; PLATELET MORPHOLOGY COMMENT ABNORMAL (NORMAL)
[2020-11-08 06:36] LABS: ABG ALLEN TEST POS; ABG BASE EXCESS 26.4 mmol/L (-2.0-2.0); ABG HCO3 55.7 mmol/L (22-26)
--- NOTE | 2020-11-08 08:31 | RAD ---
HISTORYSOBSTUDYCHEST x-ray, 1 VIEWCOMPARISONX-ray 11/07/2020FINDINGSLikely persistent CHF. Probable small to moderate left pleural effusion. Possible mild pulmonary edema but pneumonia cannot be excluded, especially at the left lung base. No pneumothorax is seen.IMPRESSIONAppearance of the chest is similar to prior study.Electronically signed by: Jean-Pierre Butts (Nov 08, 2020 08:29:37)
[2020-11-08] MEDS: LOVENOX INJ 40 MG SYR SC SCH (08:42)
[2020-11-08] MEDS: DIFLUCAN 200 MG IV PREMIX* 200 MG/100 ML BAG IV SCH (08:42)
[2020-11-08] MEDS: VSL#3 PO SCH (08:42)
[2020-11-08] MEDS: NICOTINE PATCH TD SCH (09:01)
[2020-11-08] MEDS: PULMICORT NEB TX 0.5 MG NEB SCH ×2 (09:11→21:02)
[2020-11-08] MEDS: DUONEB 0.5 MG/3 MG (3 mL) NEB SCH ×4 (09:11→21:02)
[2020-11-08] MEDS: LEVAQUIN PREMIX IV 500 MG 500 MG/100 ML BAG IV SCH (09:45)
[2020-11-08] MEDS: FORTAZ or TAZICEF VIAL INJ 1 G in NS 50 ML IV + SPIKE MINIBAG* 50 ML IV SCH ×2 (14:09→21:00)
[2020-11-08] MEDS: NS 1000 ML 1,000 ML IV SCH (18:17)
[2020-11-08] MEDS: COLACE CAP 100 MG PO SCH (22:08)
--- NOTE | 2020-11-08 22:37 | PCM.PROG ---
Progress Note Progress Note for Day of Date of Exam: 11/08/20 Subjective Subjective: PT IS A 60 YEAR OLD FEMALE BEING TREATED FOR CAP, RESPIRATORY FAILURE, CHF, COPD, A-FIB, AND HTN. OVERNIGHT PATIENT REFUSED BIPAP SUPPORT. SHE HAS BEEN MAINTAINING OXYGEN SATURATIONS IN THE 90S ON NASAL CANNULA. THIS MORNING SHE IS IN BED COMFORTABLY. SHE REPORTS SIGNIFICANT IMPROVEMENT IN R ESPIRATORY STATUS THROUGHOUT THE WEEKEND. SHE IS CURRENTLY UTILIZING OXYGEN VIA NASAL CANNULA AT 4 LITERS/MINUTE. LABS/IMAGING: WBC 5.2, HGB 16.8, PLT 111, NA 143, K 4.0, CREATININE 1.13, GLUCOSE 260, ABG:PH 7.42, PCO2 82, PO2 74, HCO3 55, O2 95 ON FIO2 40%. BLOOD CULTURES NO GROWTH TO DATE AND SPUTUM CULTURES YEAST WITH NORMAL TRAE. A CHEST XRAY WAS OBTAINED AND REVEALED: Likely persistent CHF. Probable small to moderate left pleural effusion. Possible mild pulmonary edema but pneumonia cannot be excluded, especially at the left lung base. SHE IS CURRENTLY RECEIVING NS AT KVO, FORTAZ 1G IV Q8H, LEVAQUIN 500MG IV DAILY, DIFLUCAN 200MG IV DAILY, DUONEBS QID, PULMICORT NEBS BID, LOVENOX 40MG SC DAILY, LASIX 40MG IV Q8H, SOLU-MEDROL 80MG IV Q8H, KLONOPIN 0.5MG BID PRN, PROBIOTICS. WILL CONTINUE AGGRESSIVE RESPIRATORY TREATMENT, DETERMINE AMBULATORY O2 REQUIREMENT FOR SETTING UP HOME OXYGEN. OTHERWISE, WE PLAN TO FOLLOW UP WITH AM LABS AND CONTINUE TO MONITOR. TIME SPENT ON CLINICAL ASSESSMENT, REVIEWING LABS AND IMAGING, DECISION MAKING, AND DOCUMENTATION WAS GREATER THAN 45 MINUTES. Past Medical Family Social History Past Med/Fam/Surg Hx: No changes since H&P Allergies: Allergies shellfish derived Allergy (Verified 11/03/20 19:52) Review of Systems ROS: No change since H&P Vital Signs and I&O's Vital Signs: Temperature 98.3 F Pulse Rate 66 Respiratory Rate 20 Blood Pressure 160/76 O2 Sat by Pulse Oximetry 96 Intake and Output: Intake & Output 11/05/20 11/06/20 11/07/20 11/08/20 23:59 23:59 23:59 23:59 Intake Total 743 / 743 1712 / 1712 2431 / 2431 1940 / 1940 Output Total 2250 / 2250 3200 / 3200 2500 / 2500 2100 / 2100 Balance -1507 / -1507 -1488 / -1488 -69 / -69 -160 / -160 Physical Exam Oriented: Normal Eyes: Normal Ear: Normal Nose: Normal Throat: Normal Respiratory: Generalized and Diminished Cardiovascular: Normal : Normal Auscultation: Bowel Sounds: Normal Tenderness: Normal Skin: Normal Musculoskeletal: Normal Psychiatric: Normal Mood Description: Calm and Appropriate Affect: Normal Speech Pattern: Clear and Appropriate Laboratory and Diagnostics Result Diagrams: 11/08/20 04:50 11/08/20 04:50 Labs: 11/04/20 00:44 Sputum - Expectorated Sputum Sputum Culture - Preliminary 11/04/20 00:44 Sputum - Expectorated Sputum - Final 11/03/20 17:18 Blood Blood Culture - Preliminary 11/03/20 17:11 Blood Blood Culture - Preliminary Laboratory WBC 5.2 X10^3/uL (3.6-10.0) 11/08/20 04:50 RBC 6.67 X10^6/uL (3.5-5.4) H 11/08/20 04:50 Hgb 16.8 g/dL (12.0-16.0) H 11/08/20 04:50 Hct 54.2 % (36.0-47.0) H 11/08/20 04:50 MCV 81.2 fL (80.0-100.0) 11/08/20 04:50 MCH 25.1 pg (27.0-34.0) L 11/08/20 04:50 MCHC 30.9 g/dL (33.0-35.0) L 11/08/20 04:50 RDW 22.0 % (11.6-16.5) H 11/08/20 04:50 Plt Count 111 X10^3/uL (150.0-450.0) L 11/08/20 04:50 Plt Count Comment Decreased (ADEQUATE) A 11/08/20 04:50 MPV 8.6 fL (7.4-11.0) 11/08/20 04:50 Neut % (Auto) 90.6 % (42.0-75.0) H 11/08/20 04:50 Lymph % (Auto) 6.6 % (21.0-51.0) L 11/08/20 04:50 [place] % (Auto) 2.3 % (0.0-13.0) 11/08/20 04:50 Eos % (Auto) 0.1 % (0.9-2.9) L 11/08/20 04:50 Baso % (Auto) 0.4 % (0.2-1.0) 11/08/20 04:50 Neut # (Auto) 4.7 x10^3/uL (2.2-4.8) 11/08/20 04:50 Lymph # (Auto) 0.3 X10^3/uL (1.3-2.9) L 11/08/20 04:50 [place] # (Auto) 0.1 x10^3/uL (0.3-0.8) L 11/08/20 04:50 Eos # (Auto) 0.0 x10^3/uL (0.0-0.2) 11/08/20 04:50 Baso # (Auto) 0.0 X10^3/uL (0.0-0.1) 11/08/20 04:50 Absolute Nucleated RBC 0.1 /100WBC 11/08/20 04:50 Total Counted 100 11/08/20 04:50 Neutrophils % (Manual) 92 % (39-76) H 11/08/20 04:50 Lymphocytes % (Manual) 6 % (13-43) L 11/08/20 04:50 Monocytes % (Manual) 2 % (4-9) L 11/08/20 04:50 Giant Platelets Few 11/08/20 04:50 Plt Morphology Comment Abnormal (NORMAL) A 11/08/20 04:50 RBC Morphology Abnormal (NORMAL) A 11/08/20 04:50 Hypochromasia Slight A 11/07/20 04:50 Anisocytosis 1+ A 11/08/20 04:50 Microcytosis Slight A 11/07/20 04:50 PT 13.4 SECONDS (11.8-14.3) 11/03/20 15:29 INR Target Range - 11/03/20 15:29 INR 1.07 (0.8-1.3) 11/03/20 15:29 APTT 25.0 SECONDS (22.9-36.5) 11/03/20 15:29 PTT Comment - 11/03/20 15:29 D-Dimer 0.38 ug/ml (0.0-0.57) 11/03/20 15:29 Sample Site Rra 11/08/20 06:32 ABG pH 7.440 (7.35-7.45) 11/08/20 06:32 ABG pCO2 82.0 mmHg (35.0-45.0) H* 11/08/20 06:32 ABG pO2 74.0 mmHg (80.0-100.0) L 11/08/20 06:32 ABG HCO3 55.7 mmol/L (22-26) H* 11/08/20 06:32 ABG O2 Saturation 95.0 % (90-100) 11/08/20 06:32 ABG Base Excess 26.4 mmol/L (-2.0-2.0) H 11/08/20 06:32 [place] Test Pos 11/08/20 06:32 A-a Gradient 109.0 mmHg 11/08/20 06:32 FiO2 40 11/08/20 06:32 Blood Gas Comments Marge well mts 11/08/20 06:32 Sodium 143 mmol/L (136-145) 11/08/20 04:50 Corrected Sodium 147 mmol/L (136-145) H 11/08/20 04:50 Potassium 4.0 mmol/L (3.5-5.1) 11/08/20 04:50 Chloride 99 mmol/L (98-107) 11/08/20 04:50 Carbon Dioxide 44.1 mmol/L (21-32) H* 11/08/20 04:50 BUN 26 mg/dL (7-18) H 11/08/20 04:50 Creatinine 1.13 mg/dL (0.55-1.02) H 11/08/20 04:50 Est GFR (MDRD) Af Amer > 60 (>60) 11/08/20 04:50 Est GFR (MDRD) Non-Af 52 (>60) L 11/08/20 04:50 Glucose 260 mg/dL (65-99) H 11/08/20 04:50 Lactic Acid 0.9 mmol/L (0.4-2.0) 11/03/20 17:11 Calcium 9.5 mg/dL (8.5-10.1) 11/08/20 04:50 Corrected Calcium 10.6 mg/dL (8.5-10.1) H 11/08/20 04:50 Total Bilirubin 0.70 mg/dL (0.2-1.0) 11/08/20 04:50 AST 18 Units/L (15-37) 11/08/20 04:50 ALT 19 Units/L (12-78) 11/08/20 04:50 Alkaline Phosphatase 57 Units/L (46-116) 11/08/20 04:50 Creatine Kinase 79 Units/L (26-192) 11/03/20 15:29 CK-MB (CK-2) 1.0 ng/mL (0-4.0) 11/03/20 15:29 CK/CKMB % Calc 1.3 % (<4) 11/03/20 15:29 Troponin I < 0.02 ng/mL (0-1.5) 11/03/20 15:29 B-Natriuretic Peptide 20.9 pg/mL (0-79) 11/07/20 04:50 Total Protein 7.5 g/dL (6.4-8.2) 11/08/20 04:50 Albumin 2.6 g/dL (3.4-5.0) L 11/08/20 04:50 Globulin 4.9 g/dL (2.5-4.5) H 11/08/20 04:50 Albumin/Globulin Ratio 0.5 Ratio (1.1-2.1) L 11/08/20 04:50 TSH 3rd Generation 2.723 uIU/mL (0.358-3.74) 11/03/20 15:29 Specimen Type Catherized urine 11/03/20 15:08 Urine Color Yellow (YELLOW) 11/03/20 15:08 Urine Appearance Clear (CLEAR) 11/03/20 15:08 Urine pH 6.0 (5.0 - 8.0) 11/03/20 15:08 Ur Specific [place] 1.015 (1.000-1.030) 11/03/20 15:08 Urine Protein 2+ (NEGATIVE) 11/03/20 15:08 Urine Glucose (UA) Negative (NEGATIVE) 11/03/20 15:08 Urine Ketones Negative (NEGATIVE) 11/03/20 15:08 Urine Occult Blood Negative (NEGATIVE) 11/03/20 15:08 Urine Nitrite Negative (NEGATIVE) 11/03/20 15:08 Urine Bilirubin Negative (NEGATIVE) 11/03/20 15:08 Urine Urobilinogen Normal (NORMAL) 11/03/20 15:08 Ur Leukocyte Esterase Negative (NEGATIVE) 11/03/20 15:08 Urine RBC 0-2 /HPF (0-3) 11/03/20 15:08 Urine WBC 0-2 /HPF (0-5) 11/03/20 15:08 Ur Squamous Epith Cells Few /HPF (NEGATIVE) 11/03/20 15:08 Ur Transition Epith Cell Rare /HPF (NEGATIVE) 11/03/20 15:08 Amorphous Sediment Trace /HPF (NEGATIVE) 11/03/20 15:08 Urine Bacteria Trace /HPF (NEGATIVE) 11/03/20 15:08 Urine Mucus Few /HPF (NEGATIVE) 11/03/20 15:08 Ur Culture Indicated? No/not indicated 11/03/20 15:08 SARS CoV-2 RNA Rapid FINESSE Negative (NEGATIVE) 11/03/20 14:39 Plan (1) Pneumonia: Status: Acute Qualifiers: Laterality: bilateral Lung location: unspecified part of lung Pneumonia type: due to unspecified organism Qualified Code(s): J18.9 - Pneumonia, unspecified organism (2) Acute respiratory failure: Status: Acute Qualifiers: Respiratory failure complication: unspecified whether with hypoxia or hypercapnia Qualified Code(s): J96.00 - Acute respiratory failure, unspecified whether with hypoxia or hypercapnia (3) COPD exacerbation: Status: Acute (4) CHF (congestive heart failure), NYHA class III: Status: Acute Qualifiers: Congestive heart failure type: unspecified Qualified Code(s): I50.9 - Heart failure, unspecified (5) A-fib: Status: Chronic Qualifiers: Atrial fibrillation type: paroxysmal Qualified Code(s): I48.0 - Paroxysmal atrial fibrillation (6) HTN (hypertension): Status: Chronic Qualifiers: Hypertension type: primary hypertension Qualified Code(s): I10 - Essential (primary) hypertension
[2020-11-09] MEDS: LASIX IVP SCH ×2 (02:08→09:45)
[2020-11-09] MEDS: FORTAZ or TAZICEF VIAL INJ 1 G in NS 50 ML IV + SPIKE MINIBAG* 50 ML IV SCH (05:43)
[2020-11-09] MEDS: SOLU-Medrol 125 MG VIAL IVP SCH (05:44)
[2020-11-09 06:07] LABS: BASOPHILS % (AUTO) 0.4 % (0.2-1.0); EOSINOPHILS % (AUTO) 0.1 % (0.9-2.9); HEMOGLOBIN 16.9 g/dL (12.0-16.0); LYMPHOCYTES # (AUTO) 0.3 X10^3/uL (1.3-2.9); LYMPHOCYTES % (AUTO) 5.9 % (21.0-51.0); MEAN CORPUSCULAR HEMOGLOBIN 24.4 pg (27.0-34.0); MEAN CORPUSCULAR HGB CONC 29.9 g/dL (33.0-35.0); MEAN CORPUSCULAR VOLUME 81.7 fL (80.0-100.0); MONOCYTES # (AUTO) 0.2 x10^3/uL (0.3-0.8); MONOCYTES % (AUTO) 3.2 % (0.0-13.0); NEUTROPHILS # (AUTO) 4.7 x10^3/uL (2.2-4.8); NEUTROPHILS % (AUTO) 90.4 % (42.0-75.0); PLATELET COUNT 115 X10^3/uL (150.0-450.0); RED BLOOD COUNT 6.91 X10^6/uL (3.5-5.4); RED CELL DISTRIBUTION WIDTH 21.7 % (11.6-16.5); WHITE BLOOD COUNT 5.2 X10^3/uL (3.6-10.0)
[2020-11-09 06:25] LABS: ALANINE AMINOTRANSFERASE 22 Units/L (12-78); ALBUMIN 2.7 g/dL (3.4-5.0); ALKALINE PHOSPHATASE 54 Units/L (46-116); ASPARTATE AMINO TRANSFERASE 17 Units/L (15-37); BLOOD UREA NITROGEN 29 mg/dL (7-18); CALCIUM 9.8 mg/dL (8.5-10.1); CHLORIDE 99 mmol/L (98-107); COR CA(FOR HYPOALB) 10.8 mg/dL (8.5-10.1); COR NA(FOR HYPERGLY) 145 mmol/L (136-145); SODIUM 142 mmol/L (136-145); TOTAL PROTEIN 7.4 g/dL (6.4-8.2); eGFR NON BLACK RACES 54 (>60)
[2020-11-09 06:47] LABS: CARBON DIOXIDE 42.1 mmol/L (21-32)
--- NOTE | 2020-11-09 07:07 | RAD ---
HISTORYShortness of breathSTUDYChest AP [id number]/12/2021FINDINGSThe heart is enlarged. Pulmonary venous congestion is present. No interstitial edema, alveolar edema, alveolar infiltrates or pleural effusions are identified. Bony thorax is unremarkable.IMPRESSIONCardiomegaly with pulmonary venous congestion unchanged from the prior examinationNo definite infiltratesElectronically signed by: SHARON VELEZ (Nov 09, 2020 07:05:43)
[2020-11-09] MEDS: DUONEB 0.5 MG/3 MG (3 mL) NEB SCH (08:21)
[2020-11-09] MEDS: PULMICORT NEB TX 0.5 MG NEB SCH (08:21)
[2020-11-09 08:32] LABS: HEMATOCRIT 56.4 % (36.0-47.0)
[2020-11-09 08:35] LABS: BAND NEUTROPHILS % 1 % (0-10); PLATELET MORPHOLOGY COMMENT NORMAL (NORMAL)
[2020-11-09 08:36] LABS: ANISOCYTOSIS 1+
[2020-11-09] MEDS: NICOTINE PATCH TD SCH (08:44)
[2020-11-09] MEDS: DIFLUCAN 200 MG IV PREMIX* 200 MG/100 ML BAG IV SCH (09:19)
[2020-11-09] MEDS: LEVAQUIN PREMIX IV 500 MG 500 MG/100 ML BAG IV SCH (09:19)
[2020-11-09] MEDS: LOVENOX INJ 40 MG SYR SC SCH (09:20)
[2020-11-09] MEDS: VSL#3 PO SCH (09:24)
[2020-11-09] MEDS ORDERED: LEVAQUIN TAB 500 MG PO NR (10:00)
[2020-11-09] MEDS ORDERED: LASIX PO NR (10:00)
[2020-11-09] MEDS ORDERED: DIFLUCAN PO NR (10:00)
[2020-11-09 10:03] VITALS: BP 164/76
--- NOTE | 2020-11-09 10:31 | W.DIS.FURT ---
Summary of Discharge Discharge Summary of Date Date of Exam: 11/09/20 Admission Date Date of Admission: 11/03/20 Admission Diagnosis Patient Problems (Updated 11/07/20 @ 11:20 by Mark Raza) Acute respiratory failure (Acute) J96.00 Respiratory failure (Acute) J96.90 Pneumonia (Acute) J18.9 COPD exacerbation (Acute) J44.1 CHF (congestive heart failure), NYHA class III (Acute) I50.9 A-fib (Chronic) I48.91 HTN (hypertension) (Chronic) I10 Hospital Course: PT IS A 60 YEAR OLD FEMALE BEING TREATED FOR CAP, RESPIRATORY FAILURE, CHF, COPD, A-FIB, AND HTN. HER HOSPITAL/TREATMENT COURSE INCLUDED: REQUIRING BIPAP ON ADMISSION WITH DAILY TITRATIONS AND ABG MONITORING. PT WAS ALSO TREATED FOR PNEUMONIA AND CHF WITH ANTIBIOTICS AND IV LASIX. SPUTUM CULTURES YEAST WITH NORMAL TRAE. TELE-CRITICAL CARE WAS CONSULTED TO ASSIST WITH MANAGEMENT. ECHO EF=66%, MILD TO MOD PULM HYPERTENSION, ELEVATED RA PRESURE. PT RECEIVED NS AT O, FORTAZ 1G IV Q8H, LEVAQUIN 500MG IV DAILY, DIFLUCAN 200MG IV DAILY, DUONEBS QID, PULMICORT NEBS BID, LOVENOX 40MG SC DAILY, LASIX 40MG IV Q8H, SOLU-MEDROL 80MG IV Q8H, KLONOPIN 0.5MG BID PRN, PROBIOTICS. PT RESPONDED WELL TO TREATMENTS AND RESPIRATORY STATUS GRADUALLY IMPROVED. PT WAS ABLE TO BE WEANED OFF BIPAP AND PULSE OX STABILIZED >90% ON NASAL CANNULA AT 4 LITERS/MINUTE. PT DISCHARGED IN STABLE CONDITION WITH RX LEVAQUIN, DIFLUCAN, LASIX, PREDNISONE, AND HOME O2. PT IS FROM THE [facility] AND HAS PCP. INSTRUCTED TO FOLLOW UP WITH PCP IN 3-5 DAYS. Vital Signs: Vital Signs (72 hours) 11/06/20 10:30 11/06/20 10:45 11/06/20 11:00 Temperature Pulse Rate 71 70 62 Respiratory Rate 43 H 40 H 21 Blood Pressure 145/66 O2 Sat by Pulse Oximetry 99 99 99 11/06/20 11:15 11/06/20 11:30 11/06/20 11:45 Temperature Pulse Rate 61 54 L 64 Respiratory Rate 20 24 33 H Blood Pressure O2 Sat by Pulse Oximetry 98 98 97 11/06/20 12:00 11/06/20 12:15 11/06/20 12:30 Temperature 98.1 F Pulse Rate 54 L 53 L 68 Respiratory Rate 21 21 38 H Blood Pressure 145/73 O2 Sat by Pulse Oximetry 97 97 96 11/06/20 12:45 11/06/20 13:00 11/06/20 13:14 Temperature Pulse Rate 74 68 65 Respiratory Rate 26 H 21 Blood Pressure 131/61 O2 Sat by Pulse Oximetry 93 L 92 L 96 11/06/20 13:15 11/06/20 13:30 11/06/20 13:45 Temperature Pulse Rate 63 72 62 Respiratory Rate 19 40 H 21 Blood Pressure O2 Sat by Pulse Oximetry 96 97 97 11/06/20 14:00 11/06/20 14:15 11/06/20 14:30 Temperature Pulse Rate 63 76 63 Respiratory Rate 20 37 H 27 H Blood Pressure 136/62 O2 Sat by Pulse Oximetry 97 98 98 11/06/20 14:45 11/06/20 15:00 11/06/20 15:15 Temperature Pulse Rate 69 75 69 Respiratory Rate 31 H 35 H 31 H Blood Pressure 155/77 O2 Sat by Pulse Oximetry 95 95 94 L 11/06/20 15:30 11/06/20 15:45 11/06/20 16:00 Temperature 98.1 F Pulse Rate 79 73 65 Respiratory Rate 28 H 37 H 24 Blood Pressure 154/80 O2 Sat by Pulse Oximetry 89 L 92 L 95 11/06/20 17:00 11/06/20 17:01 11/06/20 18:00 Temperature Pulse Rate 65 73 53 L Respiratory Rate 36 H 19 Blood Pressure 152/69 142/68 O2 Sat by Pulse Oximetry 94 L 93 L 100 11/06/20 19:00 11/06/20 20:00 11/06/20 21:00 Temperature 98.4 F Pulse Rate 62 67 63 Respiratory Rate 21 17 24 Blood Pressure 142/63 162/75 139/61 O2 Sat by Pulse Oximetry 95 93 L 97 11/06/20 22:00 11/06/20 23:00 11/07/20 00:00 Temperature Pulse Rate 61 56 L 51 L Respiratory Rate 26 H 20 24 Blood Pressure 124/86 170/84 174/82 O2 Sat by Pulse Oximetry 98 97 98 11/07/20 01:00 11/07/20 02:00 11/07/20 03:00 Temperature Pulse Rate 54 L 56 L 57 L Respiratory Rate 25 H 26 H 28 H Blood Pressure 148/70 168/76 148/68 O2 Sat by Pulse Oximetry 96 89 L 91 L 11/07/20 04:00 11/07/20 05:00 11/07/20 06:00 Temperature 98.1 F Pulse Rate 54 L 54 L 62 Respiratory Rate 29 H 30 H 18 Blood Pressure 148/68 146/84 172/74 O2 Sat by Pulse Oximetry 93 L 89 L 95 11/07/20 07:00 11/07/20 08:00 11/07/20 09:00 Temperature 98.1 F Pulse Rate 65 64 53 L Respiratory Rate 22 21 28 H Blood Pressure 184/87 149/67 148/67 O2 Sat by Pulse Oximetry 90 L 97 99 11/07/20 09:28 11/07/20 10:00 11/07/20 11:00 Temperature Pulse Rate 75 64 71 Respiratory Rate 32 H 22 Blood Pressure 160/88 152/71 O2 Sat by Pulse Oximetry 96 97 94 L 11/07/20 12:00 11/07/20 12:36 11/07/20 13:00 Temperature Pulse Rate 60 72 60 Respiratory Rate 29 H 29 H Blood Pressure 152/71 O2 Sat by Pulse Oximetry 97 95 97 11/07/20 14:00 11/07/20 15:00 11/07/20 16:00 Temperature 98.3 F Pulse Rate 59 L 59 L 49 L Respiratory Rate 33 H 33 H 23 Blood Pressure 162/88 196/91 O2 Sat by Pulse Oximetry 93 L 93 L 94 L 11/07/20 16:57 11/07/20 17:00 11/07/20 18:00 Temperature Pulse Rate 63 66 Respiratory Rate 22 Blood Pressure 166/77 O2 Sat by Pulse Oximetry 96 94 L 94 L 11/07/20 19:00 11/07/20 20:00 11/07/20 21:00 Temperature 98.7 F Pulse Rate 57 L 66 72 Respiratory Rate 26 H 24 28 H Blood Pressure 173/84 180/87 168/79 O2 Sat by Pulse Oximetry 92 L 95 91 L 11/07/20 21:09 11/07/20 22:00 11/07/20 23:00 Temperature Pulse Rate 53 L 55 L 53 L Respiratory Rate 19 26 H Blood Pressure 186/91 155/96 O2 Sat by Pulse Oximetry 95 91 L 93 L 11/08/20 00:00 11/08/20 01:00 11/08/20 02:00 Temperature 98.4 F Pulse Rate 59 L 54 L 55 L Respiratory Rate 24 24 26 H Blood Pressure 175/72 160/72 170/72 O2 Sat by Pulse Oximetry 92 L 89 L 91 L 11/08/20 03:00 11/08/20 04:00 11/08/20 05:00 Temperature 98.6 F Pulse Rate 71 57 L 58 L Respiratory Rate 25 H 22 24 Blood Pressure 159/72 169/72 159/72 O2 Sat by Pulse Oximetry 88 L 97 94 L 11/08/20 06:00 11/08/20 07:00 11/08/20 08:00 Temperature 98.6 F Pulse Rate 58 L 57 L 81 Respiratory Rate 20 23 22 Blood Pressure 177/67 172/74 158/79 O2 Sat by Pulse Oximetry 94 L 93 L 94 L 11/08/20 09:00 11/08/20 09:11 11/08/20 10:00 Temperature Pulse Rate 67 62 59 L Respiratory Rate 22 22 Blood Pressure 159/59 162/69 O2 Sat by Pulse Oximetry 94 L 95 93 L 11/08/20 11:00 11/08/20 11:57 11/08/20 12:00 Temperature 98.4 F Pulse Rate 76 83 69 Respiratory Rate 22 22 Blood Pressure 155/80 O2 Sat by Pulse Oximetry 93 L 81 L 94 L 11/08/20 15:00 11/08/20 16:00 11/08/20 17:00 Temperature 98.4 F Pulse Rate 78 68 58 L Respiratory Rate 21 24 20 Blood Pressure 177/83 167/83 158/83 O2 Sat by Pulse Oximetry 96 94 L 96 11/08/20 17:46 11/08/20 18:00 11/08/20 19:00 Temperature 98.3 F Pulse Rate 62 74 60 Respiratory Rate 23 20 Blood Pressure 162/76 160/76 O2 Sat by Pulse Oximetry 97 94 L 95 11/08/20 21:02 11/08/20 22:00 11/08/20 23:00 Temperature 98.8 F Pulse Rate 66 65 63 Respiratory Rate 20 20 Blood Pressure 159/75 172/75 O2 Sat by Pulse Oximetry 96 95 96 11/09/20 02:00 11/09/20 04:00 11/09/20 06:00 Temperature 98.4 F Pulse Rate 78 57 L 65 Respiratory Rate 24 20 18 Blood Pressure 160/88 171/92 160/74 O2 Sat by Pulse Oximetry 95 95 96 11/09/20 08:00 11/09/20 08:22 11/09/20 10:00 Temperature 98.3 F Pulse Rate 62 73 81 Respiratory Rate 20 24 Blood Pressure 180/84 164/76 O2 Sat by Pulse Oximetry 98 95 96 Labs: Laboratory Last Values WBC 5.2 X10^3/uL (3.6-10.0) 11/09/20 05:10 RBC 6.91 X10^6/uL (3.5-5.4) H 11/09/20 05:10 Hgb 16.9 g/dL (12.0-16.0) H 11/09/20 05:10 Hct 56.4 % (36.0-47.0) H* 11/09/20 05:10 MCV 81.7 fL (80.0-100.0) 11/09/20 05:10 MCH 24.4 pg (27.0-34.0) L 11/09/20 05:10 MCHC 29.9 g/dL (33.0-35.0) L 11/09/20 05:10 RDW 21.7 % (11.6-16.5) H 11/09/20 05:10 Plt Count 115 X10^3/uL (150.0-450.0) L 11/09/20 05:10 Plt Count Comment Decreased (ADEQUATE) A 11/09/20 05:10 MPV 9.0 fL (7.4-11.0) 11/09/20 05:10 Neut % (Auto) 90.4 % (42.0-75.0) H 11/09/20 05:10 Lymph % (Auto) 5.9 % (21.0-51.0) L 11/09/20 05:10 [place] % (Auto) 3.2 % (0.0-13.0) 11/09/20 05:10 Eos % (Auto) 0.1 % (0.9-2.9) L 11/09/20 05:10 Baso % (Auto) 0.4 % (0.2-1.0) 11/09/20 05:10 Neut # (Auto) 4.7 x10^3/uL (2.2-4.8) 11/09/20 05:10 Lymph # (Auto) 0.3 X10^3/uL (1.3-2.9) L 11/09/20 05:10 [place] # (Auto) 0.2 x10^3/uL (0.3-0.8) L 11/09/20 05:10 Eos # (Auto) 0.0 x10^3/uL (0.0-0.2) 11/09/20 05:10 Baso # (Auto) 0.0 X10^3/uL (0.0-0.1) 11/09/20 05:10 Absolute Nucleated RBC 0.3 /100WBC 11/09/20 05:10 Total Counted 100 11/09/20 05:10 Neutrophils % (Manual) 96 % (39-76) H 11/09/20 05:10 Band Neutrophils % 1 % (0-10) 11/09/20 05:10 Lymphocytes % (Manual) 2 % (13-43) L 11/09/20 05:10 Monocytes % (Manual) 1 % (4-9) L 11/09/20 05:10 Giant Platelets Few 11/08/20 04:50 Plt Morphology Comment Normal (NORMAL) 11/09/20 05:10 RBC Morphology Abnormal (NORMAL) A 11/09/20 05:10 Hypochromasia Slight A 11/07/20 04:50 Anisocytosis 1+ A 11/09/20 05:10 Microcytosis Slight A 11/07/20 04:50 PT 13.4 SECONDS (11.8-14.3) 11/03/20 15:29 INR Target Range - 11/03/20 15:29 INR 1.07 (0.8-1.3) 11/03/20 15:29 APTT 25.0 SECONDS (22.9-36.5) 11/03/20 15:29 PTT Comment - 11/03/20 15:29 D-Dimer 0.38 ug/ml (0.0-0.57) 11/03/20 15:29 Sample Site Rra 11/08/20 06:32 ABG pH 7.440 (7.35-7.45) 11/08/20 06:32 ABG pCO2 82.0 mmHg (35.0-45.0) H* 11/08/20 06:32 ABG pO2 74.0 mmHg (80.0-100.0) L 11/08/20 06:32 ABG HCO3 55.7 mmol/L (22-26) H* 11/08/20 06:32 ABG O2 Saturation 95.0 % (90-100) 11/08/20 06:32 ABG Base Excess 26.4 mmol/L (-2.0-2.0) H 11/08/20 06:32 [place] Test Pos 11/08/20 06:32 A-a Gradient 109.0 mmHg 11/08/20 06:32 FiO2 40 11/08/20 06:32 Blood Gas Comments Marge well mts 11/08/20 06:32 Sodium 142 mmol/L (136-145) 11/09/20 05:10 Corrected Sodium 145 mmol/L (136-145) 11/09/20 05:10 Potassium 4.4 mmol/L (3.5-5.1) 11/09/20 05:10 Chloride 99 mmol/L (98-107) 11/09/20 05:10 Carbon Dioxide 42.1 mmol/L (21-32) H* 11/09/20 05:10 BUN 29 mg/dL (7-18) H 11/09/20 05:10 Creatinine 1.10 mg/dL (0.55-1.02) H 11/09/20 05:10 Est GFR (MDRD) Af Amer > 60 (>60) 11/09/20 05:10 Est GFR (MDRD) Non-Af 54 (>60) L 11/09/20 05:10 Glucose 219 mg/dL (65-99) H 11/09/20 05:10 Lactic Acid 0.9 mmol/L (0.4-2.0) 11/03/20 17:11 Calcium 9.8 mg/dL (8.5-10.1) 11/09/20 05:10 Corrected Calcium 10.8 mg/dL (8.5-10.1) H 11/09/20 05:10 Total Bilirubin 0.70 mg/dL (0.2-1.0) 11/09/20 05:10 AST 17 Units/L (15-37) 11/09/20 05:10 ALT 22 Units/L (12-78) 11/09/20 05:10 Alkaline Phosphatase 54 Units/L (46-116) 11/09/20 05:10 Creatine Kinase 79 Units/L (26-192) 11/03/20 15:29 CK-MB (CK-2) 1.0 ng/mL (0-4.0) 11/03/20 15:29 CK/CKMB % Calc 1.3 % (<4) 11/03/20 15:29 Troponin I < 0.02 ng/mL (0-1.5) 11/03/20 15:29 B-Natriuretic Peptide 20.9 pg/mL (0-79) 11/07/20 04:50 Total Protein 7.4 g/dL (6.4-8.2) 11/09/20 05:10 Albumin 2.7 g/dL (3.4-5.0) L 11/09/20 05:10 Globulin 4.7 g/dL (2.5-4.5) H 11/09/20 05:10 Albumin/Globulin Ratio 0.6 Ratio (1.1-2.1) L 11/09/20 05:10 TSH 3rd Generation 2.723 uIU/mL (0.358-3.74) 11/03/20 15:29 Specimen Type Catherized urine 11/03/20 15:08 Urine Color Yellow (YELLOW) 11/03/20 15:08 Urine Appearance Clear (CLEAR) 11/03/20 15:08 Urine pH 6.0 (5.0 - 8.0) 11/03/20 15:08 Ur Specific [place] 1.015 (1.000-1.030) 11/03/20 15:08 Urine Protein 2+ (NEGATIVE) 11/03/20 15:08 Urine Glucose (UA) Negative (NEGATIVE) 11/03/20 15:08 Urine Ketones Negative (NEGATIVE) 11/03/20 15:08 Urine Occult Blood Negative (NEGATIVE) 11/03/20 15:08 Urine Nitrite Negative (NEGATIVE) 11/03/20 15:08 Urine Bilirubin Negative (NEGATIVE) 11/03/20 15:08 Urine Urobilinogen Normal (NORMAL) 11/03/20 15:08 Ur Leukocyte Esterase Negative (NEGATIVE) 11/03/20 15:08 Urine RBC 0-2 /HPF (0-3) 11/03/20 15:08 Urine WBC 0-2 /HPF (0-5) 11/03/20 15:08 Ur Squamous Epith Cells Few /HPF (NEGATIVE) 11/03/20 15:08 Ur Transition Epith Cell Rare /HPF (NEGATIVE) 11/03/20 15:08 Amorphous Sediment Trace /HPF (NEGATIVE) 11/03/20 15:08 Urine Bacteria Trace /HPF (NEGATIVE) 11/03/20 15:08 Urine Mucus Few /HPF (NEGATIVE) 11/03/20 15:08 Ur Culture Indicated? No/not indicated 11/03/20 15:08 SARS CoV-2 RNA Rapid FINESSE Negative (NEGATIVE) 11/03/20 14:39 Reason For Visit: RESPIRATORY FAILURE, PNEUMONIA, COPD, A FIB, HTN Discharge Date Discharge Date: 11/09/20 Discharge Diagnosis All Active Problems (Updated 11/07/20 @ 11:20 by Mark Raza) Obesity hypoventilation syndrome (Acute) Acute respiratory failure (Acute) Respiratory failure (Acute) Pneumonia (Acute) COPD exacerbation (Acute) CHF (congestive heart failure), NYHA class III (Acute) A-fib (Chronic) HTN (hypertension) (Chronic) Plan of Treatment: Continue with present treatment and follow up plan. Pt is to keep follow up appointment as instructed and take medications as ordered. Discharge Medications Discharge Medications: shellfish derived Allergy (Verified 11/03/20 19:52) CONTINUE taking the following medications amlodipine 10 mg PO DAILY 11/03/20 [History] New Prescriptions fluconazole [Diflucan] 200 mg PO ONCE 2 Days #2 tab 11/09/20 [Rx] furosemide [Lasix] 40 mg PO BID 5 Days #10 tab 11/09/20 [Rx] levofloxacin 750 mg PO Q24H 2 Days #2 tab 11/09/20 [Rx] prednisone 40 mg PO DAILY 5 Days #10 tab 11/09/20 [Rx] Discharge Disposition Assessment: Stable no acute distress noted at time of discharge. Discharge Disposition: HOME Discharge Condition: STABLE Discharge Plan Discharge Plan Hospital Course: PT IS A 60 YEAR OLD FEMALE BEING TREATED FOR CAP, RESPIRATORY FAILURE, CHF, COPD, A-FIB, AND HTN. HER HOSPITAL/TREATMENT COURSE INCLUDED: REQUIRING BIPAP ON ADMISSION WITH DAILY TITRATIONS AND ABG MONITORING. PT WAS ALSO TREATED FOR PNEUMONIA AND CHF WITH ANTIBIOTICS AND IV LASIX. SPUTUM CULTURES YEAST WITH NORMAL TRAE. TELE-CRITICAL CARE WAS CONSULTED TO ASSIST WITH MANAGEMENT. ECHO EF=66%, MILD TO MOD PULM HYPERTENSION, ELEVATED RA PRESURE. PT RECEIVED NS AT KVO, FORTAZ 1G IV Q8H, LEVAQUIN 500MG IV DAILY, DIFLUCAN 200MG IV DAILY, DUONEBS QID, PULMICORT NEBS BID, LOVENOX 40MG SC DAILY, LASIX 40MG IV Q8H, SOLU-MEDROL 80MG IV Q8H, KLONOPIN 0.5MG BID PRN, PROBIOTICS. PT RESPONDED WELL TO TREATMENTS AND RESPIRATORY STATUS GRADUALLY IMPROVED. PT WAS ABLE TO BE WEANED OFF BIPAP AND PULSE OX STABILIZED >90% ON NASAL CANNULA AT 4 LITERS/MINUTE. PT DISCHARGED IN STABLE CONDITION WITH RX LEVAQUIN, DIFLUCAN, LASIX, PREDNISONE, AND HOME O2. PT IS FROM THE [facility] AND HAS PCP. INSTRUCTED TO FOLLOW UP WITH PCP IN 3-5 DAYS. Patient Disposition: 01 HOME, SELF-CARE Condition: Stable Health Concerns: Post Hospitalization: new medications and changes needed to prevent readmission or further decline. Pt educated and given instructions on all concerns. Care Plan Goals: Problem: Respiratory Complications Goal: Improved Uncomplicated Respiratory Status Instructions: Follow provided instructions. Follow up with primary physician as directed. Contact primary care physician or report to the closest Emergency Room if condition worsens. Plan of Treatment: Continue with present treatment and follow up plan. Pt is to keep follow up appointment as instructed and take medications as ordered. Assessment: Stable no acute distress noted at time of discharge. Prescriptions: New furosemide [Lasix] 40 mg tablet 40 mg PO BID 5 Days Qty: 10 RF: 0 prednisone 20 mg tablet 40 mg PO DAILY 5 Days Qty: 10 RF: 0 Continued amlodipine 10 mg tablet 10 mg PO DAILY RF: 0 Follow ups/Referrals Follow ups/Referrals: NFD,None [Primary Care Provider] - 3 days (Patient to follow up with PCP in [facility] within a week.) Instructions Instructions: Incentive Spirometer, Home Oxygen Use, Adult, Steps to Quit Smoking, [id number], Antibiotic Medicine, Adult, [id number], Chronic Obstructive Pulmonary Disease Exacerbation, Wgle-[id number], Health Risks of Smoking, Hypertension, [id number], Acute Respiratory Failure, Adult, Heart Failure, Jbwn-of-Wofy, You've Been Prescribed an Antibiotic in the Hospital for an Infection - CDC (07/2017), Tobacco Use Disorder, Community-Acquired Pneumonia, Adult, [id number]-Jmds Stand Alone Forms: Excuse From Work or School, Precautions for COVID19, Patient Portal, Social Distancing
== END 2020-11-09 11:15 | disposition home or self-care (01) | DRG 189 ==
LOC: ER 14:01 → ICU 17:19
PROVIDERS: ADMIT Family Medicine; ATTEND Family Medicine
DX: I50.9 Heart failure, unspecified; R26.89 Other abnormalities of gait and mobility; Z86.16 Personal history of COVID-19; J44.1 Chronic obstructive pulmonary disease with (acute) exacerbation; R94.31 Abnormal electrocardiogram [ECG] [EKG]; I48.0 Paroxysmal atrial fibrillation; Z20.822 Contact with and (suspected) exposure to COVID-19; E66.2 Morbid (severe) obesity with alveolar hypoventilation; B37.1 Pulmonary candidiasis; J96.21 Acute and chronic respiratory failure with hypoxia; I11.0 Hypertensive heart disease with heart failure